=== PATIENT | male | born 1965 | race Caucasian/White ===

== ENCOUNTER 2017-08-27 17:23 | Emergency (ER) | payer MEDICAID ==
[~2017-08-27] VITALS: Ht 185.4 cm; Wt 108.9 kg
[2017-08-27 17:31] VITALS: BP 153/96
[2017-08-27] MEDS ORDERED: diphenhdrAMINE HCL 25 MG CAP PO ONE (17:45)
== END 2017-08-27 18:29 | disposition home or self-care (01) ==
LOC: EDBD 17:23 → ER 17:23
DX: F41.9 Anxiety disorder, unspecified (principal); M25.511 Pain in right shoulder

== ENCOUNTER 2021-02-04 11:58 | Inpatient (IN) | payer MEDICAID ==
[~2021-02-04] VITALS: Ht 188 cm; Wt 124.9 kg
[2021-02-04] MEDS ORDERED: CHOL20009 PO (13:22)
[2021-02-04] MEDS ORDERED: APIX5TAB PO (13:22)
[2021-02-04] MEDS ORDERED: SIMV-8 PO (13:22)
[2021-02-04] MEDS ORDERED: LISI20TA28 PO (13:22)
[2021-02-04 13:46] LABS: Basophils # (auto) 0.1 10 ^3/uL (0-0.2); Basophils % (auto) 0.9 % (0.0-2.0); Eosinophils # (auto) 0.3 10 ^3/uL (0-0.8); Eosinophils % (auto) 2.6 % (0.0-7.0); Hematocrit 46.3 % (41.0-53.0); Hemoglobin 15.4 g/dL (13.5-17.5); Lymphocytes # (auto) 2.3 10 ^3/uL (0.4-5.4); Lymphocytes % (auto) 18.7 % (10.0-50.0); Mean Corpuscular Hgb Conc. 33.2 g/dL (32.0-36.0); Mean Corpuscular Volume 93.5 fL (80.0-100.0); Monocytes # (auto) 1.3 10 ^3/uL (0-1.3); Monocytes % (auto) 10.5 % (0.0-12.0); Neutrophils # (auto) 8.3 10 ^3/uL (1.6-8.6); Neutrophils % (auto) 67.3 % (37.0-80.0); Nucleated Red Blood Cells % 0.1 %; Red Blood Cells 4.95 10^6/uL (4.5-5.90); Red Cell Distribution Width 12.6 % (11.8-14.3); White Blood Cell 12.3 10^3/uL (4.4-10.8)
[2021-02-04 13:50] LABS: Albumin 2.9 g/dL (3.4-5.0); Potassium 3.8 mmol/L (3.5-5.1)
[2021-02-04 13:55] LABS: BUN/Creatinine Ratio 23.2; Bilirubin, Total 0.7 mg/dL (0.2-1.0); Calcium 8.5 mg/dL (8.5-10.1); Total Protein 7.3 g/dL (6.4-8.2)
[2021-02-04 14:23] LABS: INR 1.12 (0.9-1.15); Partial Thromboplastin Time 29.3 sec (23.6-33.0)
[2021-02-04 16:24] LABS: Urine Bacteria NONE SEEN /hpf (None Seen); Urine Blood Negative /uL (Negative); Urine WBC <1 /hpf (0 - 3)
[2021-02-04] MEDS ORDERED: IOHEXOL 350 MG/ML 100ML IJ ONE (17:44)
[2021-02-04] MEDS ORDERED: HEPARIN SODIUM (PORCINE) 5000 UNITS/ML 1ML VIAL IV ONE (19:45)
[2021-02-04] MEDS: HEPARIN DRIP/D5W 100UNITS/ML 250 ML IV SCH (20:17)
[2021-02-05] VITALS (7 sets, daily range): BP systolic 120–157; BP diastolic 70–97
[2021-02-05] MEDS ORDERED: NITROGLYCERIN 0.4 MG SL TAB SL PRN (00:15)
[2021-02-05] MEDS ORDERED: ONDANSETRON HCL 4 MG/2 ML VIAL IV PRN (00:15)
[2021-02-05] MEDS ORDERED: MORPHINE SULFATE INJECTION 2 MG/ML SYRG IV PRN (00:15)
[2021-02-05] MEDS ORDERED: hydrALAZINE HCL 20 MG/ML VL IV PRN (00:15)
[2021-02-05 04:28] LABS: INR 1.25 (0.9-1.15)
[2021-02-05 04:34] LABS: Partial Thromboplastin Time > 139.0 sec (23.6-33.0)
[2021-02-05 09:09] LABS: INR 1.17 (0.9-1.15); Partial Thromboplastin Time 37.4 sec (23.6-33.0)
[2021-02-05 09:10] LABS: Calcium 8.8 mg/dL (8.5-10.1); Potassium 4.3 mmol/L (3.5-5.1)
[2021-02-05 09:14] LABS: BUN/Creatinine Ratio 17.3
[2021-02-05] MEDS: MORPHINE SULFATE 4 MG/ML SYR/VIAL IV PRN ×3 (09:30→21:38)
[2021-02-05] MEDS: HEPARIN DRIP/D5W 100UNITS/ML 250 ML IV SCH (09:39)
[2021-02-05 14:58] LABS: INR 1.16 (0.9-1.15); Partial Thromboplastin Time 31.4 sec (23.6-33.0)
[2021-02-05] MEDS ORDERED: HEPARIN SODIUM (PORCINE) 5000 UNITS/ML 1ML VIAL IV ONE (15:15)
[2021-02-05] MEDS: ATORVASTATIN 20 MG TAB PO SCH (21:37)
[2021-02-05 22:38] LABS: INR 1.13 (0.9-1.15); Partial Thromboplastin Time 53.8 sec (23.6-33.0)
[2021-02-06] MEDS: HEPARIN DRIP/D5W 100UNITS/ML 250 ML IV SCH (00:43)
[2021-02-06] MEDS: MORPHINE SULFATE 4 MG/ML SYR/VIAL IV PRN ×4 (03:46→21:02)
[2021-02-06 05:00] VITALS: BP 126/63
[2021-02-06 06:52] LABS: Basophils # (auto) 0.1 10 ^3/uL (0-0.2); Basophils % (auto) 0.7 % (0.0-2.0); Eosinophils # (auto) 0.5 10 ^3/uL (0-0.8); Eosinophils % (auto) 5.7 % (0.0-7.0); Hematocrit 43.8 % (41.0-53.0); Lymphocytes # (auto) 2.4 10 ^3/uL (0.4-5.4); Lymphocytes % (auto) 25.2 % (10.0-50.0); Mean Corpuscular Hemoglobin 32.2 pg (28.0-32.0); Mean Corpuscular Hgb Conc. 34.2 g/dL (32.0-36.0); Mean Corpuscular Volume 94.3 fL (80.0-100.0); Monocytes # (auto) 0.9 10 ^3/uL (0-1.3); Monocytes % (auto) 9.6 % (0.0-12.0); Neutrophils # (auto) 5.6 10 ^3/uL (1.6-8.6); Neutrophils % (auto) 58.8 % (37.0-80.0); Nucleated Red Blood Cells % 0.1 %; Red Blood Cells 4.64 10^6/uL (4.5-5.90); Red Cell Distribution Width 12.6 % (11.8-14.3); White Blood Cell 9.5 10^3/uL (4.4-10.8)
[2021-02-06 07:10] LABS: BUN/Creatinine Ratio 13.1; Calcium 8.6 mg/dL (8.5-10.1); Potassium 4.7 mmol/L (3.5-5.1)
[2021-02-06 07:11] LABS: INR 1.14 (0.9-1.15); Partial Thromboplastin Time 49.2 sec (23.6-33.0)
[2021-02-06 08:30] VITALS: BP 131/89
[2021-02-06] MEDS: CHOLECALCIFEROL (VITD3) 2,000 UNIT CAP/TAB PO SCH (09:29)
[2021-02-06] MEDS: LISINOPRIL 20 MG TAB PO SCH (09:29)
[2021-02-06 12:30] VITALS: BP 136/90
[2021-02-06 14:22] LABS: INR 1.16 (0.9-1.15); Partial Thromboplastin Time 54.5 sec (23.6-33.0)
[2021-02-06 17:00] VITALS: BP 128/74
[2021-02-06] MEDS: ATORVASTATIN 20 MG TAB PO SCH (21:02)
[2021-02-06] MEDS: APIXABAN 5 MG TAB PO SCH (21:02)
[2021-02-06 22:00] VITALS: BP 132/82
[2021-02-07 05:00] VITALS: BP 123/75
[2021-02-07 07:42] LABS: BUN/Creatinine Ratio 12.4; Calcium 8.8 mg/dL (8.5-10.1); Potassium 5.1 mmol/L (3.5-5.1)
[2021-02-07 07:43] LABS: Basophils # (auto) 0.1 10 ^3/uL (0-0.2); Eosinophils # (auto) 0.5 10 ^3/uL (0-0.8); Eosinophils % (auto) 4.5 % (0.0-7.0); Hematocrit 43.6 % (41.0-53.0); Hemoglobin 14.9 g/dL (13.5-17.5); Lymphocytes # (auto) 2.1 10 ^3/uL (0.4-5.4); Lymphocytes % (auto) 19.7 % (10.0-50.0); Mean Corpuscular Hemoglobin 31.6 pg (28.0-32.0); Mean Corpuscular Hgb Conc. 34.1 g/dL (32.0-36.0); Mean Corpuscular Volume 92.5 fL (80.0-100.0); Monocytes # (auto) 1.2 10 ^3/uL (0-1.3); Monocytes % (auto) 11.1 % (0.0-12.0); Neutrophils # (auto) 6.7 10 ^3/uL (1.6-8.6); Neutrophils % (auto) 63.7 % (37.0-80.0); Nucleated Red Blood Cells % 0.1 %; Red Blood Cells 4.72 10^6/uL (4.5-5.90); Red Cell Distribution Width 12.7 % (11.8-14.3); White Blood Cell 10.5 10^3/uL (4.4-10.8)
[2021-02-07 08:00] VITALS: BP 107/67
[2021-02-07 09:00] VITALS: BP 120/72
[2021-02-07] MEDS: CHOLECALCIFEROL (VITD3) 2,000 UNIT CAP/TAB PO SCH (09:23)
[2021-02-07] MEDS: APIXABAN 5 MG TAB PO SCH (09:23)
[2021-02-07] MEDS: LISINOPRIL 20 MG TAB PO SCH (09:29)
[2021-02-07 13:00] VITALS: BP 108/81
[2021-02-07] MEDS: MORPHINE SULFATE 4 MG/ML SYR/VIAL IV PRN ×2 (14:07→18:20)
[2021-02-07] MEDS ORDERED: APIX5TAB PO (14:26)
[2021-02-07] MEDS ORDERED: SIMV-8 PO (14:26)
[2021-02-07] MEDS ORDERED: LISI20TA28 PO (14:26)
[2021-02-07 18:30] VITALS: BP 123/89
[2021-02-07 18:50] VITALS: BP 125/68
[2021-02-13] MEDS ORDERED: APIXABAN 5 MG TAB PO SCH (22:00)
== END 2021-02-07 18:40 | disposition home or self-care (01) | DRG 134 ==
LOC: ER 11:58 → EDBD 11:58 → TELE 02-05 00:16 → TELE-WESTW 02-05 04:12
PROVIDERS: ADMIT Hospitalist; ATTEND Hospitalist
DX: I26.99 Other pulmonary embolism without acute cor pulmonale (principal); J96.01 Acute respiratory failure with hypoxia; E44.0 Moderate protein-calorie malnutrition; E66.9 Obesity, unspecified; E55.9 Vitamin D deficiency, unspecified; E78.5 Hyperlipidemia, unspecified; I10 Essential (primary) hypertension; I27.20 Pulmonary hypertension, unspecified; J98.11 Atelectasis; Z20.822 Contact with and (suspected) exposure to COVID-19; Z79.01 Long term (current) use of anticoagulants; Z86.711 Personal history of pulmonary embolism; Z86.718 Personal history of other venous thrombosis and embolism; Z87.891 Personal history of nicotine dependence; Z91.14 Patient's other noncompliance with medication regimen; Z79.899 Other long term (current) drug therapy; Z68.35 Body mass index [BMI] 35.0-35.9, adult; R91.1 Solitary pulmonary nodule
CPT/HCPCS: 36415; 36600; 71045; 71275; 80048; 80053; 81001; 82805; 83735; 83880; 84443; 84484; 85025; 85379; 85610; 85730; 87426; 93005; 93306; 96365; 96376; G0378; J2405

== ENCOUNTER 2024-01-24 18:24 | Inpatient (IN) | payer MEDICAID ==
[~2024-01-24] VITALS: Ht 180.3 cm; Wt 119.7 kg
[~2024-01-24 18:24] MED LIST: APIX5TAB PO; CHOL20009 PO; LISI20TA56 PO; SIMV20TA20 PO
[2024-01-24] MEDS: ONDANSETRON HCL 4 MG/2 ML VIAL IV ONE (18:30)
[2024-01-24 18:52] LABS: Basophils # (auto) 0.1 10 ^3/uL (0-0.2); Basophils % (auto) 0.9 % (0.0-2.0); Eosinophils # (auto) 0.3 10 ^3/uL (0-0.8); Eosinophils % (auto) 2.5 % (0.0-7.0); Hematocrit 48.2 % (41.0-53.0); Hemoglobin 16.8 g/dL (13.5-17.5); Lymphocytes # (auto) 3.1 10 ^3/uL (0.4-5.4); Lymphocytes % (auto) 25.3 % (10.0-50.0); Mean Corpuscular Hemoglobin 34.1 pg (28.0-32.0); Mean Corpuscular Hgb Conc. 34.8 g/dL (32.0-36.0); Mean Corpuscular Volume 97.9 fL (80.0-100.0); Monocytes # (auto) 1.3 10 ^3/uL (0-1.3); Monocytes % (auto) 10.7 % (0.0-12.0); Neutrophils # (auto) 7.4 10 ^3/uL (1.6-8.6); Neutrophils % (auto) 60.6 % (37.0-80.0); Nucleated Red Blood Cells % 0.2 %; Platelet Count (auto) 171 10^3/uL (140-450); Red Blood Cells 4.92 10^6/uL (4.5-5.90); Red Cell Distribution Width 13.6 % (11.8-14.3); White Blood Cell 12.2 10^3/uL (4.4-10.8)
--- NOTE | 2024-01-24 18:56 | ED.PDOC ---
SOB-HPI HPI Comments 58-year-old male comes to ER via EMS due to shortness of breath. Patient with a past medical history of rattlesnake bite, hypertension, hyperlipidemia, right lower extremity DVT and bilateral PE, patient has poor compliance to his Eliquis . Patient shortness of breath has been ongoing for past few days progressively getting worse. He is on home oxygen. Patient was saturating 90% on room air. Patient was given breathing treatment, EN route to the emergency room. 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 Information Source: Patient Mode of Arrival: EMS Severity: Moderate Timing: Days Duration: Intermittent Context: At Rest, With Light Exertion PE Risk Factors: None History of: DVT/PE Prehospital treatment: Breathing Tx, Oxygen Modifying Factors: Nothing Past Medical History PAST MEDICAL HISTORY: High Lipids, HTN, PE Past Medical History (Other): DVT right leg Surgical History: Denies all surgeries Family History Family History: Reviewed,noncontributory to illness Social History Smoker: Non-Smoker Alcohol: Denies ETOH Use Drugs: Denies Drug Use Lives In: Home Constitutional: denies: chills, diaphoresis, fatigue, fever, malaise, sweats, weakness, others EENTM: denies: blurred vision, double vision, ear bleeding, ear discharge, ear drainage, ear pain, ear ringing, eye pain, eye redness, hearing loss, mouth pain, mouth swelling, nasal discharge, nose bleeding, nose congestion, nose pain, photophobia, tearing, throat pain, throat swelling, voice changes, others Respiratory: reports: SOB at rest, shortness of breath, SOB with excertion; denies: cough, hemoptysis, orthopnea, stridor, wheezing, others Cardiovascular: denies: chest pain, dizzy spells, diaphoresis, Dyspnea on exertion, edema, irregular heart beat, left arm pain, lightheadedness, palpitations, PND, syncope, others Gastrointestinal: denies: abdomen distended, abdominal pain, blood streaked bowels, constipated, diarrhea, dysphagia, difficulty swallowing, hematemesis, melena, nausea, poor appetite, poor fluid intake, rectal bleeding, rectal pain, vomiting, others Genitourinary: denies: burning, dysuria, flank pain, frequency, hematuria, incontinence, penile discharge, penile sore, pain, testicle pain, testicle swelling, urgency, others Neurological: denies: dizziness, fainting, headache, left sided numbness, left sided weakness, numbness, paresthesia, pre-existing deficit, right sided numbness, right sided weakness, seizure, speech problems, tingling, tremors, weakness, others Musculoskeletal: denies: back pain, gout, joint pain, joint swelling, muscle pain, muscle stiffness, neck pain, others Integumetry: denies: bruises, change in color, change in hair/nails, dryness, laceration, lesions, lumps, rash, wounds, others Allergic/Immunocompromised: denies: Difficulty Healing, Frequent Infections, Hives, Itching, others Hematologic/Lymphatic: denies: anemia, blood clots, easy bleeding, easy bruising, swollen glands, others Endocrine: denies: excessive hunger, excessive sweating, excessive thirst, excessive urination, flushing, intolerance to cold, intolerance to heat, unexplained weight gain, unexplained weight loss, others Psychiatric: denies: anxiety, bipolar disorder, depression, hopeless, panic disorder, schizophrenia, sleepless, suicidal, others Physical Exam General Appearance: No Apparent Distress, Normal HEENT: Normal ENT Inspection, Pharynx Normal, TMs Normal Neck: Full Range of Motion, Non-Tender, Normal, Normal Inspection Respiratory: Chest Non-Tender, Lungs Clear, No Accessory Muscle Use, No Respiratory Distress, Normal Breath Sounds Cardiovascular: No Edema, No JVD, No Murmur, No Gallop, Normal Peripheral Pulses, Regular Rate/Rhythm Breast Exam: Deferred Gastrointestinal: No Organomegaly, Non Tender, No Pulsatile Mass, Normal Bowel Sounds, Soft Genitalia: Deferred Pelvic: Deferred Rectal: Deferred Extremities: No calf tenderness, Normal capillary refill, Normal inspection, Normal range of motion, Non-tender, No pedal edema Musculoskeletal : Apperance: Normal Neurologic: Alert, 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 Was a procedure done?: No Differential Dx Differential Diagnosis: Asthma, Bronchitis, CHF, COPD, Pneumonia, Pulmonary Embolism, Respiratory Distress, URI X-Ray, Labs, Meds, VS Vital Signs Date Time Temp Pulse Resp B/P (MAP) Pulse Ox O2 Delivery O2 Flow Rate FiO2 01/24/24 21:01 88 21 158/99 01/24/24 20:26 97.9 88 21 158/99 (118) 96 97.9 01/24/24 20:26 88 21 96 Nasal Cannula* 2 28 01/24/24 18:41 98.9 100 22 164/100 (121) 99 01/24/24 18:28 98 Lab Test 01/24/24 21:12 01/24/24 19:33 01/24/24 18:39 Range/Units Troponin I High Sensitivity 169 *H 195 *H 186 *H </=54 ng/L White Blood Count 12.2 H 4.4-10.8 10^3/uL Red Blood Count 4.92 4.5-5.90 10^6/uL Hemoglobin 16.8 13.5-17.5 g/dL Hematocrit 48.2 41.0-53.0 % Mean Corpuscular Volume 97.9 80.0-100.0 fL Mean Corpuscular Hemoglobin 34.1 H 28.0-32.0 pg Mean Corpuscular Hemoglobin Concent 34.8 32.0-36.0 g/dL Red Cell Distribution Width 13.6 11.8-14.3 % Platelet Count 171 140-450 10^3/uL Mean Platelet Volume 8.8 6.9-10.8 fL Neutrophils (%) (Auto) 60.6 37.0-80.0 % Lymphocytes (%) (Auto) 25.3 10.0-50.0 % Monocytes (%) (Auto) 10.7 0.0-12.0 % Eosinophils (%) (Auto) 2.5 0.0-7.0 % Basophils (%) (Auto) 0.9 0.0-2.0 % Neutrophils # (Auto) 7.4 1.6-8.6 10 ^3/uL Lymphocytes # (Auto) 3.1 0.4-5.4 10 ^3/uL Monocytes # (Auto) 1.3 0-1.3 10 ^3/uL Eosinophils # (Auto) 0.3 0-0.8 10 ^3/uL Basophils # (Auto) 0.1 0-0.2 10 ^3/uL Nucleated Red Blood Cells 0.2 % D-Dimer, Quantitative 3.53 H 0.0-0.49 mg/L FEU Sodium Level 138 136-145 mmol/L Potassium Level 3.7 3.5-5.1 mmol/L Chloride Level 105 98-107 mmol/L Carbon Dioxide Level 23 20-31 mmol/L Anion Gap 10 5-15 Blood Urea Nitrogen 5 L 9-23 mg/dL Creatinine 0.83 0.700-1.30 mg/dL Glomerular Filtration Rate Calc 101 >90 mL/min BUN/Creatinine Ratio 6.0 L 10.0-20.0 Serum Glucose 113 H 74-106 mg/dL Calcium Level 9.4 8.7-10.4 mg/dL B-Type Natriuretic Peptide 242.63 0-100 pg/mL Current Medications Medications (Trade) Dose Ordered Sig/Pedro Route Start Time Stop Time Status Last Admin Morphine Sulfate 4 mg ONCE ONCE IV 01/24/24 18:30 01/24/24 18:31 DC 01/24/24 21:01 PROCEDURE(s): CTACH - CT ANGIO CHEST CONTRAST Findings: Pulmonary artery: Large filling defects are noted in the right and left pulmonary arteries. Lower neck: Normal thyroid. Lungs: No focal consolidation, pulmonary mass, or suspicious pulmonary nodule. Heart/Vascular Structures: Normal heart size. Normal caliber and enhancement of the aorta. There is some straightening of the septum and reflux of contrast into the inferior vena cava and hepatic veins suggesting right heart strain. Lymph Nodes: No adenopathy Pleura: No pleural effusion or significant pneumothorax. Musculoskeletal: No acute osseous abnormality. Upper abdomen: Limited portions of the upper abdomen are unremarkable. IMPRESSION: 1. Large bilateral filling defects in the pulmonary arteries suggestive of pulmonary emboli. Findings are noted secondary 3rd order branches of the pulmonary arteries bilaterally. 2. CT findings suggesting right heart strain CRITICAL FINDINGS Critical Result: BILATERAL PULMONARY EMBOLUS Bilateral lower extremity venous duplex Findings: RIGHT SIDE: The common femoral vein demonstrates appropriate compressibility and waveform variability. There is compressibility/patency of the great saphenous vein at the proximal thigh. The femoral vein demonstrates appropriate compressibility and waveform variability. The deep femoral vein demonstrates appropriate compressibility and waveform variability. The popliteal vein demonstrates no flow or compressibility of the right popliteal vein consistent with thrombus. There is normal compressibility at the tibioperoneal trunk. Right inguinal lymph node measuring 3.2 cm. Impression: 1. No flow or compressibility of the right popliteal vein consistent with DVT. 2. 3.2 cm lymph node in the right inguinal area. 3. Incidental finding of calcification of the right common femoral artery with no flow. 4. Right SFA proximally is monophasic. CHEST RADIOGRAPH FINDINGS: Lines and Tubes: None Lungs: No focal consolidation. Pleura: No effusion. No pneumothorax. Cardiomediastinal contours: Cardiac size is mildly enlarged. Bones: No acute osseous abnormality. IMPRESSION: 1. Cardiac size is mildly enlarged. Time of 1ST Reevaluation: 18:52 Reevaluation 1ST: Unchanged Patient Education/Counseling: Diagnosis, Treatment Family Education/Counseling: No Family Present Departure 1 Departure Time of Disposition: 21:54 (Patient presented with chest pain that was concerning for possible STEMI, ACS, PE, Pneumonia, Muscle Strain, COPD, Dissection. Data: 1. I ordered and reviewed the result of at least 3 labs including a CBC, BMP, and Troponin. 2. I independently interpreted the following tests: EKG which shows sinus arrhythmia and Chest X-ray which shows benign chest.Risk:This patient has a high risk of morbidity due to further diagnostic testing or treatment and may suffer from an acute cardiac or respiratory disorder. Workup reveals bilateral pulmonary embolism. [facility] team will be consulted, heparin drip started and patient should be admitted for further workup and possible expert consultation. ) Impression: Primary Impression: Bilateral pulmonary embolism Additional Impressions: Right leg DVT Qualified Codes: I82.431 - Acute embolism and thrombosis of right popliteal vein Acute chest pain Acute dyspnea Disposition: 09 ADMITTED INPATIENT Admit to: Tele Condition: Guarded Critical Care Note Critical Care Time?: Yes (35 min-critical care time only) Critical care comment: Acute chest pain Authorized and Performed by: Milagro Cooley MD Total critical care time: Approximately 48 minutes Due to a high probability of clinically significant, life threatening deterioration, the patient required my highest level of preparedness to intervene emergently and I personally spent this critical care time directly and personally managing the patient. This critical care time included obtaining a h istory; examining the patient; pulse oximetry; ordering and review of studies; arranging urgent treatment with development of a management plan; evaluation of patient's response to treatment; frequent reassessment; and, discussions with other providers. This critical care time was performed to assess and manage the high probability of imminent, life-threatening deterioration that could result in multi-organ failure. It was exclusive of separately billable procedures and treating other patients and teaching time. Please see my other sections and the rest of the note for further information on patient assessment and treatment. Stability Stability form required: No Heart Score Heart Score: Heart Score Response (Comments) Value History Slightly Suspicious 0 EKG Normal 0 Age 45-64 1 Risk Factors 1 or 2 risk factors 1 Troponin Normal limit 0 Total 2 I personally scribed for MILAGRO COOLEY MD ([facility]) on 01/24/24 at 18:56. Electronically submitted by Shreyas Swenson ([facility]). I personally scribed for MILAGRO COOLEY MD ([facility]) on 01/24/24 at 20:00. Electronically submitted by Shreyas Swenson ([facility]). I personally scribed for MILAGRO COOLEY MD ([facility]) on 01/24/24 at 21:41. Electronically submitted by Shreyas Swenson ([facility]). MILAGRO COOLEY MD Jan 24, 2024 18:56
--- NOTE | 2024-01-24 19:00 | DVH ---
CHEST RADIOGRAPH Indication:CHEST PAIN/ SOB Technique: Single frontal view of the chest was obtained Comparison: CHEST PORTABLE on DOS: 02/04/21 FINDINGS: Lines and Tubes: None Lungs: No focal consolidation. Pleura: No effusion. No pneumothorax. Cardiomediastinal contours: Cardiac size is mildly enlarged. Bones: No acute osseous abnormality. IMPRESSION: 1. Cardiac size is mildly enlarged.
[2024-01-24 19:02] LABS: Chloride 105 mmol/L (98-107); Potassium 3.7 mmol/L (3.5-5.1); Sodium 138 mmol/L (136-145)
[2024-01-24 19:04] LABS: Anion Gap 10 (5-15); Calcium 9.4 mg/dL (8.7-10.4); Carbon Dioxide 23 mmol/L (20-31)
[2024-01-24 19:09] LABS: Blood Urea Nitrogen 5 mg/dL (9-23); Glucose 113 mg/dL (74-106)
--- NOTE | 2024-01-24 19:12 | ECG ---
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
--- NOTE | 2024-01-24 19:52 | DVH ---
Bilateral lower extremity venous duplex Clinical History: right leg pain, history of blood clots Comparison: None Technique: Duplex Doppler evaluation of the deep venous systems of both lower extremities from the common femora l veins to the popliteal veins including color Doppler and spectral/pulsed waveform analysis was perf ormed. Findings: RIGHT SIDE: The common femoral vein demonstrates appropriate compressibility and waveform variability. There is compressibility/patency of the great saphenous vein at the proximal thigh. The femoral vein demonstrates appropriate compressibility and waveform variability. The deep femoral vein demonstrates appropriate compressibility and waveform variability. The popliteal vein demonstrates no flow or compressibility of the right popliteal vein consistent wit h thrombus. There is normal compressibility at the tibioperoneal trunk. Right inguinal lymph node measuring 3.2 cm. Impression: 1. No flow or compressibility of the right popliteal vein consistent with DVT. 2. 3.2 cm lymph node in the right inguinal area. 3. Incidental finding of calcification of the right common femoral artery with no flow. 4. Right SFA proximally is monophasic.
[2024-01-24 20:26] VITALS: PULSE 88; RESP 21; O2SAT 96
[2024-01-24] MEDS: MORPHINE SULFATE 4 MG/ML SYR/VIAL IV ONE (21:01)
[2024-01-24] MEDS: IOHEXOL 350 MG/ML 100ML IJ ONE (21:13)
--- NOTE | 2024-01-24 21:32 | DVH ---
INDICATION: chest pain, sob, dvt noncompliant with meds Comparison: 02/04/2021 TECHNIQUE: Multidetector CTA of the chest was performed of the chest with 100 cc of intravenous contr ast. PULMONARY ANGIOGRAPHY PROTOCOL was utilized using a bolus-tracking technique centered on the suni n pulmonary artery. Axial, coronal and sagittal multiplanar and MIP reformats were performed. Radiation Dose Information: CT Dose: CTDI volume is 29.6 mGy. Dose-length product is 2227.51 mGy*cm Omnipaque 350: 100 mL The dose indicators for CT are the volume Computed Tomography (CT) Dose Index (CTDIvol) and the Dose Length Product (DLP), and are measured in units of mGy and mGy-cm, respectively. These indicators are not patient dose, but values generated from the CT scanner acquisition factors. The report includes radiation exposure data for exposures received during this examination. Findings: Pulmonary artery: Large filling defects are noted in the right and left pulmonary arteries. Lower neck: Normal thyroid. Lungs: No focal consolidation, pulmonary mass, or suspicious pulmonary nodule. Heart/Vascular Structures: Normal heart size. Normal caliber and enhancement of the aorta. There is s ome straightening of the septum and reflux of contrast into the inferior vena cava and hepatic veins suggesting right heart strain. Lymph Nodes: No adenopathy Pleura: No pleural effusion or significant pneumothorax. Musculoskeletal: No acute osseous abnormality. Upper abdomen: Limited portions of the upper abdomen are unremarkable. IMPRESSION: 1. Large bilateral filling defects in the pulmonary arteries suggestive of pulmonary emboli. Finding s are noted secondary 3rd order branches of the pulmonary arteries bilaterally. 2. CT findings suggesting right heart strain CRITICAL FINDINGS Critical Result: BILATERAL PULMONARY EMBOLUS Findings discussed with MILAGRO Mcgee at 01/24/2024 09:19 PM, and acknowledged receipt and understa nding of the findings. ..
[2024-01-24 22:08] LABS: Basophils # (auto) 0.1 10 ^3/uL (0-0.2); Eosinophils # (auto) 0.1 10 ^3/uL (0-0.8); Eosinophils % (auto) 1.1 % (0.0-7.0); Hematocrit 46.3 % (41.0-53.0); Hemoglobin 16.1 g/dL (13.5-17.5); Lymphocytes # (auto) 2.3 10 ^3/uL (0.4-5.4); Mean Corpuscular Hemoglobin 33.8 pg (28.0-32.0); Mean Corpuscular Hgb Conc. 34.8 g/dL (32.0-36.0); Mean Corpuscular Volume 97.2 fL (80.0-100.0); Neutrophils # (auto) 8.5 10 ^3/uL (1.6-8.6); Neutrophils % (auto) 70.9 % (37.0-80.0); Platelet Count (auto) 163 10^3/uL (140-450); Red Blood Cells 4.76 10^6/uL (4.5-5.90); Red Cell Distribution Width 13.3 % (11.8-14.3)
[2024-01-24] MEDS ORDERED: hydrALAZINE HCL 20 MG/ML VL IV PRN (22:15)
[2024-01-24] MEDS ORDERED: ACETAMINOPHEN 325 MG TAB PO PRN (22:15)
[2024-01-24] MEDS ORDERED: ONDANSETRON HCL 4 MG/2 ML VIAL IV PRN (22:15)
[2024-01-24 22:27] LABS: INR 1.24 (0.9-1.15); Partial Thromboplastin Time 29.9 SEC (24.5-34.5); Prothrombin Time 12.9 sec (9.3-11.8)
--- NOTE | 2024-01-24 22:42 | DVHHP2 ---
History of Present Illness Reason for Visit: Bilateral pulmonary embolism History of Present Illness The patient is a 58-year-old male with past medical history of hyperlipidemia, hypertension, PE, and DVT of right leg presented to [facility] ED with complaint of shortness of breaths. Patient reports he has been having shortness of breaths for the past few days, SOB at rest, SOB with exertion, progressively get worse that prompted this visit. Patient was seen and evaluated in the ED, laboratory data shows WBC 12.2, platelets 171, sodium 138, potassium 3.7, BUN 5, creatinine 0.83, glucose 113, troponin 186, BNP 240 263, D-dimer 3.53, blood pressure 158/99, heart rate 88, temperature 97.9 F, O2 saturation 96% on oxygen. CT Angiography revealing large bilateral filling defect in the pulmonary arteries suggestive of pulmonary emboli; findings are noted secondary thought order branches of the pulmonary arteries bilaterally. Patient was started on heparin drip, please see medication orders section in the computer. On my assessment, patient denied chest pain, no headache, no dizziness, currently on oxygen, no nausea, no vomiting, no fever, no chills. Patient was admitted for further evaluation and medical management. Past Medical History High Lipids, HTN, PE, DVT right leg Past Surgical History Denies all surgeries Family History Reviewed, noncontributory to the management of this case. Past Social History The patient lives at home, denies smoking, alcohol or illicit drugs abuse. Review of Systems Constitutional: No: Fever, Chills, Sweats, Weakness, Malaise, Other Eyes: No: Pain, Vision change, Conjunctivae inflammation, Eyelid inflammation, Other, Redness ENT: No: Ear pain, Ear discharge, Nose pain, Nose discharge, Nose congestion, Mouth pain, Mouth swelling, Throat pain, Throat swelling, Other Respiratory: Shortness of breath, SOB with excertion, Other (SOB at rest); No: Cough, Dry, Wheezing, Hemoptysis, Pleuritic Pain, Sputum, Wheezing Cardiovascular: No: Chest Pain, Palpitations, Orthopnea, Paroxysmal Noc. Dyspnea, Edema, Lt Headedness, Other Gastrointestinal: No: Nausea, Vomiting, Abdominal Pain, Diarrhea, Constipation, Melena, Hematochezia, Other Genitourinary: No Dysuria, No Frequency, No Incontinence, No Hematuria, No Retention, No Other Musculoskeletal: No: other, neck pain, shoulder pain, arm pain, back pain, hand pain, leg pain, foot pain Skin: No: Rash, Lesions, Jaundice, Bruising, Other Neurological: No: Weakness, Numbness, Incoordination, Change in speech, Confusion, Seizures, Other Allergies: Coded Allergies: No Known Drug Allergy (Verified Allergy, Unknown, 10/21/15) Medications Current Medications Medications Dose Ordered Sig/Pedro Route Start Time Stop Time Status Last Admin Dose Admin Heparin Sodium/ Dextrose 250 ml @ 23.4 mls/hr [id number] IV 01/24/24 21:45 UNV Hydralazine HCl 10 mg Q6HP PRN IV 01/24/24 22:15 Atorvastatin Calcium 20 mg HS PO 01/25/24 22:00 Lisinopril 20 mg DAILY PO 01/25/24 10:00 Sodium Chloride 1,000 ml @ 60 mls/hr [id number] IV 01/24/24 22:15 Acetaminophen/ Hydrocodone Bitart 1 tab Q4HP PRN PO 01/24/24 22:15 Ondansetron HCl 4 mg Q4HP PRN IV 01/24/24 22:15 Docusate Sodium 100 mg BIDPRN PRN PO 01/24/24 22:15 Acetaminophen 650 mg Q6HP PRN PO 01/24/24 22:15 Morphine Sulfate 2 mg Q4HPRN PRN IV 01/24/24 22:15 Exam Vital Signs Vital Signs Date Time Temp Pulse Resp B/P (MAP) Pulse Ox O2 Delivery O2 Flow Rate FiO2 01/24/24 21:01 88 21 158/99 01/24/24 20:26 97.9 96 97.9 01/24/24 20:26 Nasal Cannula* 2 28 General Appearance: Alert, Oriented X3, Cooperative, No acute distress HEENT: Atraumatic, PERRLA, EOMI, Mucous membr. moist/pink Respiratory: Normal air movement, Other (Diminished breath sounds) Cardiovascular: Regular rate, Normal S1, Normal S2, No murmurs Abdominal: Normal bowel sounds, Soft, No tenderness, No hepatospenomegaly, No masses Extremities: No clubbing, No cyanosis, No edema, Normal pulses, No tenderness/swelling Skin: No rashes, No breakdown, No significant lesion Neuro: Normal speech, Normal tone, Sensation intact, Cranial nerves 3-12 NL, Reflexes 2+, Other (Generalized weakness) Psych/Mental Status: Mental status NL, Mood NL Labs/Xrays Labs Test 01/24/24 22:02 01/24/24 21:12 01/24/24 18:39 Range/Units White Blood Count 12.0 H 4.4-10.8 10^3/uL Red Blood Count 4.76 4.5-5.90 10^6/uL Hemoglobin 16.1 13.5-17.5 g/dL Hematocrit 46.3 41.0-53.0 % Mean Corpuscular Volume 97.2 80.0-100.0 fL Mean Corpuscular Hemoglobin 33.8 H 28.0-32.0 pg Mean Corpuscular Hemoglobin Concent 34.8 32.0-36.0 g/dL Red Cell Distribution Width 13.3 11.8-14.3 % Platelet Count 163 140-450 10^3/uL Mean Platelet Volume 8.3 6.9-10.8 fL Neutrophils (%) (Auto) 70.9 37.0-80.0 % Lymphocytes (%) (Auto) 19.0 10.0-50.0 % Monocytes (%) (Auto) 8.0 0.0-12.0 % Eosinophils (%) (Auto) 1.1 0.0-7.0 % Basophils (%) (Auto) 1.0 0.0-2.0 % Neutrophils # (Auto) 8.5 1.6-8.6 10 ^3/uL Lymphocytes # (Auto) 2.3 0.4-5.4 10 ^3/uL Monocytes # (Auto) 1.0 0-1.3 10 ^3/uL Eosinophils # (Auto) 0.1 0-0.8 10 ^3/uL Basophils # (Auto) 0.1 0-0.2 10 ^3/uL Nucleated Red Blood Cells 0.0 % Prothrombin Time 12.9 H 9.3-11.8 sec Prothrombin Time INR 1.24 H 0.9-1.15 Activated Partial Thromboplast Time 29.9 24.5-34.5 SEC Troponin I High Sensitivity 169 *H </=54 ng/L D-Dimer, Quantitative 3.53 H 0.0-0.49 mg/L FEU Sodium Level 138 136-145 mmol/L Potassium Level 3.7 3.5-5.1 mmol/L Chloride Level 105 98-107 mmol/L Carbon Dioxide Level 23 20-31 mmol/L Anion Gap 10 5-15 Blood Urea Nitrogen 5 L 9-23 mg/dL Creatinine 0.83 0.700-1.30 mg/dL Glomerular Filtration Rate Calc 101 >90 mL/min BUN/Creatinine Ratio 6.0 L 10.0-20.0 Serum Glucose 113 H 74-106 mg/dL Calcium Level 9.4 8.7-10.4 mg/dL B-Type Natriuretic Peptide 242.63 0-100 pg/mL PATIENT: CONCHIS JACKSON ACCT: [id number] UNIT: [id number] : 1965 LOC: ER ROOM / BED: / AGE / SEX: 58 / M ADM STATUS: REG ER SERVICE 01 ORDERING PHYSICIAN: MILAGRO COLORADO MD PROCEDURE(s): CTACH - CT ANGIO CHEST CONTRAST REASON: chest pain, sob, dvt noncompliant with meds ORDER NUMBER(s): [id number], ACCESSION NUMBER(s): [id number] INDICATION: chest pain, sob, dvt noncompliant with meds Comparison: 02/04/2021 TECHNIQUE: Multidetector CTA of the chest was performed of the chest with 100 cc of intravenous contrast. PULMONARY ANGIOGRAPHY PROTOCOL was utilized using a bolus-tracking technique centered on the main pulmonary artery. Axial, coronal and sagittal multiplanar and MIP reformats were performed. Radiation Dose Information: CT Dose: CTDI volume is 29.6 mGy. Dose-length product is 2227.51 mGy*cm Omnipaque 350: 100 mL The dose indicators for CT are the volume Computed Tomography (CT) Dose Index (CTDIvol) and the Dose Length Product (DLP), and are measured in units of mGy and mGy-cm, respectively. These indicators are not patient dose, but values generated from the CT scanner acquisition factors. The report includes radiation exposure data for exposures received during this examination. Findings: Pulmonary artery: Large filling defects are noted in the right and left pulmonary arteries. Lower neck: Normal thyroid. Lungs: No focal consolidation, pulmonary mass, or suspicious pulmonary nodule. Heart/Vascular Structures: Normal heart size. Normal caliber and enhancement of the aorta. There is some straightening of the septum and reflux of contrast into the inferior vena cava and hepatic veins suggesting right heart strain. Lymph Nodes: No adenopathy Pleura: No pleural effusion or significant pneumothorax. Musculoskeletal: No acute osseous abnormality. Upper abdomen: Limited portions of the upper abdomen are unremarkable. IMPRESSION: 1. Large bilateral filling defects in the pulmonary arteries suggestive of pulmonary emboli. Findings are noted secondary 3rd order branches of the pulmonary arteries bilaterally. 2. CT findings suggesting right heart strain CRITICAL FINDINGS Critical Result: BILATERAL PULMONARY EMBOLUS Findings discussed with MILAGRO Mcgee at 01/24/2024 09:19 PM, and acknowledged receipt and understanding of the findings. ORDERING PHYSICIAN: MILAGRO COLORADO MD PROCEDURE(s): RLDVT - RT Lower DVT REASON: right leg pain, history of blood clots ORDER NUMBER(s): [id number], ACCESSION NUMBER(s): [id number] Bilateral lower extremity venous duplex Clinical History: right leg pain, history of blood clots Comparison: None Technique: Duplex Doppler evaluation of the deep venous systems of both lower extremities from the common femoral veins to the popliteal veins including color Doppler and spectral/pulsed waveform analysis was performed. Findings: RIGHT SIDE: The common femoral vein demonstrates appropriate compressibility and waveform variability. There is compressibility/patency of the great saphenous vein at the proximal thigh. The femoral vein demonstrates appropriate compressibility and waveform variability. The deep femoral vein demonstrates appropriate compressibility and waveform variability. The popliteal vein demonstrates no flow or compressibility of the right popliteal vein consistent with thrombus. There is normal compressibility at the tibioperoneal trunk. Right inguinal lymph node measuring 3.2 cm. Impression: 1. No flow or compressibility of the right popliteal vein consistent with DVT. 2. 3.2 cm lymph node in the right inguinal area. 3. Incidental finding of calcification of the right common femoral artery with no flow. 4. Right SFA proximally is monophasic. ORDERING PHYSICIAN: MILAGRO COLORADO MD PROCEDURE(s): CXR1 - CHEST XRAY 1 VIEW REASON: CHEST PAIN/ SOB ORDER NUMBER(s): [id number], ACCESSION NUMBER(s): [id number] CHEST RADIOGRAPH Indication:CHEST PAIN/ SOB Technique: Single frontal view of the chest was obtained Comparison: CHEST PORTABLE on DOS: 02/04/21 FINDINGS: Lines and Tubes: None Lungs: No focal consolidation. Pleura: No effusion. No pneumothorax. Cardiomediastinal contours: Cardiac size is mildly enlarged. Bones: No acute osseous abnormality. IMPRESSION: 1. Cardiac size is mildly enlarged. Assessment/Plan Assessment/Plan Bilateral pulmonary embolism Leukocytosis, unspecified Right leg DVT Acute chest pain Generalized weakness Acute dyspnea Acute embolism and thrombosis of right popliteal vein Plan 1. Admit to telemetry unit 2. Breathing treatment 3. Pain control management 4. IV antibiotic management 5. Management of fluids and electrolytes 6. Consultation for vascular/endovascular 7. Diagnostic test CT Angiography 8. DVT prophylaxis-on heparin drip 9. Repeat labs CBC, CMP in a.m. 10. Home medication reviewed and reconciled 11. Continue with current medical management 12. Treatment plan discussed with patient and RN. Patient verbalized understanding. Plan discussed with: Patient, Other (RN) My Orders Orders - JUSTIN KEYES DNP Procedure Category Date Status Time Hydralazine Injection PHA 01/24/24 In Process (Apresoline Inject 22:15 Atorvastatin (Lipitor) PHA 01/25/24 In Process 22:00 Lisinopril Tablet PHA 01/25/24 In Process (Zestril Tablet) 10:00 Allergies BEAU 01/24/24 In Process 22:06 Code Status CODE 01/24/24 Transmitted 22:06 Sodium Chloride 0.9% PHA 01/24/24 In Process 22:15 Oxygen Per Hour RT 01/24/24 Transmitted 22:06 Hydrocodone-Acet PHA 01/24/24 In Process 5/325mg Tab ([place] 22:15 Ondansetron Hcl PHA 01/24/24 In Process (Zofran) 22:15 Docusate Sodium PHA 01/24/24 In Process Capsule (Colace 22:15 Fall Risk Precautions BEAU 01/24/[address] 22:06 Complete Blood Count LAB 01/25/24 Verified 04:00 Comprehensive LAB 01/25/24 Verified Metabolic Panel 04:00 Cardiac DIET 01/25/24 Transmitted Diet-2gna,Lofat,Lochol Breakfast Echo 2d Mode Cardiac US 01/24/24 Logged DOP 22:06 Condition: Serious BEAU 01/24/24 In Process 22:06 Acetaminophen Tablet PHA 01/24/24 In Process (Tylenol Tablet) 22:15 Maintain Bed Rest BEAU 01/24/24 In Process 22:06 Morphine Sulfate PHA 01/24/24 In Process Injection 22:15 Sequential BEAU 01/24/24 In Process Compression Device Problem List: (1) Bilateral pulmonary embolism (2) Leukocytosis, unspecified (3) Right leg DVT (4) Generalized weakness (5) Acute dyspnea (6) Acute chest pain (7) Acute embolism and thrombosis of right popliteal vein Date of Service: Jan 24, 2024 Billing Provider: JUSTIN KEYES DNP Common Visit Codes: [id number] INP/OBS CARE (HIGH) JUSTIN KEYES DNP Jan 24, 2024 22:42
[2024-01-24] MEDS ORDERED: NITROGLYCERIN 0.4 MG SL TAB SL PRN (22:45)
[2024-01-24] MEDS ORDERED: MORPHINE SULFATE INJ 2 MG/ml SYRG IV PRN (22:45)
[2024-01-24] MEDS: HEPARIN SODIUM (PORCINE) 5000 UNITS/ML 1ML VIAL IV ONE (23:44)
[2024-01-24] MEDS: SODIUM CHLORIDE 0.9% 1,000 ML IV SCH (23:48)
[2024-01-24] MEDS: HEPARIN DRIP/D5W 100UNITS/ML 250 ML IV SCH (23:52)
[2024-01-25] VITALS (10 sets, daily range): BP systolic 129–145; BP diastolic 76–93; PULSE 76–89; RESP 17–23; TEMP 97.5–98.8; O2SAT 93–96
[2024-01-25] MEDS: cefTRIAXone 1GM/50ML D5W 50 ML IV ONE (06:53)
[2024-01-25 07:10] LABS: Basophils # (auto) 0.1 10 ^3/uL (0-0.2); Basophils % (auto) 0.9 % (0.0-2.0); Eosinophils # (auto) 0.4 10 ^3/uL (0-0.8); Eosinophils % (auto) 3.9 % (0.0-7.0); Hematocrit 45.2 % (41.0-53.0); Hemoglobin 15.5 g/dL (13.5-17.5); Lymphocytes # (auto) 2.6 10 ^3/uL (0.4-5.4); Lymphocytes % (auto) 24.3 % (10.0-50.0); Mean Corpuscular Hemoglobin 33.9 pg (28.0-32.0); Mean Corpuscular Hgb Conc. 34.3 g/dL (32.0-36.0); Mean Corpuscular Volume 98.8 fL (80.0-100.0); Monocytes # (auto) 1.3 10 ^3/uL (0-1.3); Monocytes % (auto) 12.1 % (0.0-12.0); Neutrophils # (auto) 6.2 10 ^3/uL (1.6-8.6); Neutrophils % (auto) 58.8 % (37.0-80.0); Nucleated Red Blood Cells % 0.1 %; Platelet Count (auto) 174 10^3/uL (140-450); Red Blood Cells 4.57 10^6/uL (4.5-5.90); Red Cell Distribution Width 13.4 % (11.8-14.3); White Blood Cell 10.6 10^3/uL (4.4-10.8)
[2024-01-25 07:26] LABS: INR 1.24 (0.9-1.15); Prothrombin Time 12.9 sec (9.3-11.8)
[2024-01-25 07:32] LABS: Alanine Aminotransferase < 9 U/L (7-40); Albumin 3.6 g/dL (3.2-4.8); Alkaline Phosphatase 65 U/L (46-116); Anion Gap 7 (5-15); Aspartate Aminotransferase 11 U/L (13-40); BUN/Creatinine Ratio 7.9 (10.0-20.0); Blood Urea Nitrogen 7 mg/dL (9-23); Calcium 9.3 mg/dL (8.7-10.4); Carbon Dioxide 28 mmol/L (20-31); Chloride 104 mmol/L (98-107); Glucose 122 mg/dL (74-106); Potassium 3.8 mmol/L (3.5-5.1); Sodium 139 mmol/L (136-145); Total Protein 6.6 g/dL (5.7-8.2)
[2024-01-25] MEDS: LISINOPRIL 20 MG TAB PO SCH (10:13)
[2024-01-25] MEDS: HEPARIN DRIP/D5W 100UNITS/ML 250 ML IV SCH ×2 (10:24→21:38)
--- NOTE | 2024-01-25 13:02 | DVHINCON2 ---
Date Seen: Jan 25, [address] Cooley Reason for Consultation PE with possible right heart strain, Elevated Troponin History of Present Illness 58-year-old male with PMH for HLD, HTN, history of snake bite, PE and right lower extremity DVT, noncompliance with anticoagulation therapy, recurrent PE, presents to the hospital with shortness of breath and chest pain. Patient states that shortness of breath started approximately 1 week prior and has been progressively getting worse and patient started having increased right lower extremity pain and swelling as well as chest pain. Chest pain retrosternal, radiating up to left upper shoulder area/neck, dull pressure in nature, that worsens with deep breath. Upon evaluation in the ER patient noted to have elevated D-dimer and BNP, elevated troponins trending 186, 195, 169. CT pulmonary angio done and showed large bilateral filling defects with pulmonary artery suggestive of pulmonary emboli as well as straightening of septum and reflux of contrast into the inferior vena cava and hepatic veins suggestive of right heart strain. EKG reviewed and shows sinus rhythm at 98 beats per minute, nonspecific T-wave abnormality. No significant ST abnormalities noted. Past Medical History Pulmonary embolism Lower extremity DVT HTN Tobacco use Medication noncompliance Past Surgical History Denies previous cardiac surgery Family History: Arthritis G8 MOTHER Family History Denies pertinent family cardiac history Social History Denies alcohol, tobacco, illicit drug use. Patient used to be heavy smoker in the past quit in 2018. Allergies: Coded Allergies: No Known Drug Allergy (Verified Allergy, Unknown, 10/21/15) Home Meds Active Scripts Lisinopril (Lisinopril) 20 Mg Tab, 1 TAB PO DAILY, #30 TAB 5 Refills Prov:TIFFANIE CURRAN MD 02/07/21 Simvastatin (Simvastatin) 20 Mg Tab, 20 MG PO DAILY for 30 Days, #30 TAB Prov:TIFFANIE CURRAN MD 02/07/21 Apixaban Base (ELIQUIS) 5 Mg Tab, 5 MG PO BID, #74 TAB Take 10 mg p.o. twice daily x1 week then switch to 5 mg p.o. twice daily Prov:TIFFANIE CURRAN MD 02/07/21 Reported Medications Cholecalciferol (VITAMIN D) 2,000 Unit Tab, 2000 UNIT PO, TAB 02/04/21 Current Medications Current Medications Medications (Trade) Dose Ordered Sig/Pedro Route PRN Reason Start Time Stop Time Status Last Admin Heparin Sodium/ Dextrose 250 ml @ 20 mls/hr [id number] IV 01/24/24 23:00 01/25/24 08:53 DC 01/24/24 23:52 Hydralazine HCl (Apresoline Injection) 10 mg Q6HP PRN IV SBP>150 01/24/24 22:15 Atorvastatin Calcium (Lipitor) 20 mg HS PO 01/25/24 22:00 Lisinopril (Zestril Tablet) 20 mg DAILY PO 01/25/24 10:00 01/25/24 10:13 Sodium Chloride 1,000 ml @ 60 mls/hr [id number] IV 01/24/24 22:15 01/24/24 23:48 Acetaminophen/ Hydrocodone Bitart ([place] 5/325MG Tab) 1 tab Q4HP PRN PO MODERATE PAIN (4-6 PAIN SCALE) 01/24/24 22:15 Ondansetron HCl (Zofran) 4 mg Q4HP PRN IV NAUSEA / VOMITING 01/24/24 22:15 Docusate Sodium (Colace Capsule) 100 mg BIDPRN PRN PO FOR CONSTIPATION 01/24/24 22:15 Acetaminophen (Tylenol Tablet) 650 mg Q6HP PRN PO PAIN SCALE 1-3 OR TEMP>100.4 01/24/24 22:15 Morphine Sulfate 2 mg Q4HPRN PRN IV SEVERE PAIN (7-10 PAIN SCALE) 01/24/24 22:15 Nitroglycerin (Ntrostat Sublingual) 0.4 mg Q5MINP PRN SL FOR CHEST PAIN 01/24/24 22:45 Morphine Sulfate 2 mg Q30M PRN IV FOR CHEST PAIN 01/24/24 22:45 Ceftriaxone Sodium 50 ml @ 100 mls/hr DAILY@09 IV 01/26/24 09:00 Heparin Sodium/ Dextrose 250 ml @ 18 mls/hr [id number] IV 01/25/24 09:00 01/25/24 10:24 Review of Systems Constitutional: No: Fever, Chills, Sweats, Weakness, Malaise, Other Eyes: No: Pain, Vision change, Conjunctivae inflammation, Eyelid inflammation, Other, Redness ENT: No: Ear pain, Ear discharge, Nose pain, Nose discharge, Nose congestion, Mouth pain, Mouth swelling, Throat pain, Throat swelling, Other Respiratory: No: Cough, Dry, , Wheezing, Hemoptysis, Pleuritic Pain, Sputum, Wheezing, Other positive: Shortness of breath, SOB with exertion Cardiovascular: ; No: Palpitations, Orthopnea, Paroxysmal Noc. Dyspnea, , Lt Headedness, Other positive: Chest Pain, Edema Gastrointestinal: No: Nausea, Vomiting, Abdominal Pain, Diarrhea, Constipation, Melena, Hematochezia, Other Genitourinary: No Dysuria, No Frequency, No Incontinence, No Hematuria, No Retention, No Other Musculoskeletal: neck pain; No: other, shoulder pain, arm pain, back pain, hand pain, leg pain, foot pain Skin: No: Rash, Lesions, Jaundice, Bruising, Other Neurological: Other (Dizziness, headache.); No: Weakness, Numbness, Incoordination, Change in speech, Confusion, Seizures Vital Signs Vital Signs Date Time Temp Pulse Resp B/P (MAP) Pulse Ox O2 Delivery O2 Flow Rate FiO2 01/25/24 10:13 134/93 01/25/24 09:00 97.6 81 18 96 97.6 01/25/24 08:00 Nasal Cannula* 2 28 Physical Exam General appearance: Patient is well-developed, well-nourished, in mild acute distress. HEENT: Exam shows: Normocephalic, atraumatic, PERRLA, EOMI Neck: Supple, no bruits Chest: Equal chest excursion bilaterally. Breath sounds rhonchi/diminished. Heart: Rhythm: Regular rate; no murmur or gallop Abdomen: Exam shows: Soft, nontender, nondistended Musculoskeletal: No clubbing, no cyanosis, + lower extremity edema Dermatology: Skin warm, moist. Neurological: Exam shows: Alert and oriented x 3-4, normal speech Available prior records, labs, EKG, rhythm strips reviewed and interpreted Labs/Diagnostic Data Labs Test 01/25/24 06:29 01/24/24 21:12 01/24/24 18:39 Range/Units White Blood Count 10.6 4.4-10.8 10^3/uL Red Blood Count 4.57 4.5-5.90 10^6/uL Hemoglobin 15.5 13.5-17.5 g/dL Hematocrit 45.2 41.0-53.0 % Mean Corpuscular Volume 98.8 80.0-100.0 fL Mean Corpuscular Hemoglobin 33.9 H 28.0-32.0 pg Mean Corpuscular Hemoglobin Concent 34.3 32.0-36.0 g/dL Red Cell Distribution Width 13.4 11.8-14.3 % Platelet Count 174 140-450 10^3/uL Mean Platelet Volume 8.9 6.9-10.8 fL Neutrophils (%) (Auto) 58.8 37.0-80.0 % Lymphocytes (%) (Auto) 24.3 10.0-50.0 % Monocytes (%) (Auto) 12.1 H 0.0-12.0 % Eosinophils (%) (Auto) 3.9 0.0-7.0 % Basophils (%) (Auto) 0.9 0.0-2.0 % Neutrophils # (Auto) 6.2 1.6-8.6 10 ^3/uL Lymphocytes # (Auto) 2.6 0.4-5.4 10 ^3/uL Monocytes # (Auto) 1.3 0-1.3 10 ^3/uL Eosinophils # (Auto) 0.4 0-0.8 10 ^3/uL Basophils # (Auto) 0.1 0-0.2 10 ^3/uL Nucleated Red Blood Cells 0.1 % Prothrombin Time 12.9 H 9.3-11.8 sec Prothrombin Time INR 1.24 H 0.9-1.15 Activated Partial Thromboplast Time 62.0 H 24.5-34.5 SEC Sodium Level 139 136-145 mmol/L Potassium Level 3.8 3.5-5.1 mmol/L Chloride Level 104 98-107 mmol/L Carbon Dioxide Level 28 20-31 mmol/L Anion Gap 7 5-15 Blood Urea Nitrogen 7 L 9-23 mg/dL Creatinine 0.89 0.700-1.30 mg/dL Glomerular Filtration Rate Calc 99 >90 mL/min BUN/Creatinine Ratio 7.9 L 10.0-20.0 Serum Glucose 122 H 74-106 mg/dL Calcium Level 9.3 8.7-10.4 mg/dL Total Bilirubin 1.0 0.2-1.0 mg/dL Aspartate Amino Transferase (AST) 11 L 13-40 U/L Alanine Aminotransferase (ALT) < 9 7-40 U/L Alkaline Phosphatase 65 46-116 U/L Total Protein 6.6 5.7-8.2 g/dL Albumin 3.6 3.2-4.8 g/dL Troponin I High Sensitivity 169 *H </=54 ng/L D-Dimer, Quantitative 3.53 H 0.0-0.49 mg/L FEU B-Type Natriuretic Peptide 242.63 0-100 pg/mL Assessment (Dr. Howard) * Acute bilateral pulmonary embolism, possible right heart strain - CTA showing large bilateral filling defects suggestive of pulmonary emboli, right heart strain. Follow-up echo. Continue on anticoagulation with heparin drip. * Acute hypoxic respiratory failure - on O2 supplementation. Continue anticoagulation therapy for PE. * RLE DVT - Ultrasound showed right popliteal DVT, right common femoral artery calcification with no flow. Continue on heparin drip * Chest pain, mildly elevated troponin - troponins stable. Downtrending. Continue heparin drip. EKG negative for acute ischemic changes. Likely in setting of acute PE. CT angiogram showing significant coronary calcification. Recommend starting on aspirin and statin. Outpatient ischemic workup once respiratory status improves. * HTN - stable, continue p.r.n. as needed. * Medication noncompliance - strongly advised medication compliance Case Discussed with Dr Howard. Thank you for allowing us to participate in this patient's care. Will continue to follow. Critical care, time spent: 40 minutes This medical document was created using an electronic medical record system with voice recognition software and computerized dictation system. Although this document has been carefully reviewed, there might still be some phonetic and typographical errors. Occasional wrong-word or ``sound-alike substitutions may have occurred due to the inherent limitations of voice recognition software. These areas are purely typographical due to imperfections of the software programs and do not reflect any compromise in the patient's medical care. Please read the chart carefully and recognize, using context, where these substitutions have occurred. The treatment plan was discussed with and agreed upon by patient/family including requesting consultants and ordering of imaging/procedures. Plan discussed with: Patient Date of Service: Jan 25, 2024 Billing Provider: BENNY HOWARD MD Cardiology Common Codes: [id number] INP/OBS CARE (High), [id number] CARE 30-74 MIN [facility] Jan 25, 2024 13:02
[2024-01-25 13:23] LABS: INR 1.22 (0.9-1.15); Partial Thromboplastin Time 53.2 SEC (24.5-34.5); Prothrombin Time 12.7 sec (9.3-11.8)
[2024-01-25 19:47] LABS: INR 1.24 (0.9-1.15); Prothrombin Time 12.9 sec (9.3-11.8)
[2024-01-25] MEDS: HYDROcodone-ACET 5/325MG TAB PO PRN (21:33)
[2024-01-25] MEDS: ATORVASTATIN 20 MG TAB PO SCH (21:33)
[2024-01-26] VITALS (9 sets, daily range): BP systolic 117–145; BP diastolic 69–98; PULSE 56–85; RESP 18–20; TEMP 97.7–98.5; O2SAT 92–98
[2024-01-26 05:34] LABS: Basophils # (auto) 0.1 10 ^3/uL (0-0.2); Basophils % (auto) 0.9 % (0.0-2.0); Eosinophils # (auto) 0.4 10 ^3/uL (0-0.8); Eosinophils % (auto) 4.2 % (0.0-7.0); Hematocrit 46.1 % (41.0-53.0); Hemoglobin 15.9 g/dL (13.5-17.5); Lymphocytes # (auto) 2.2 10 ^3/uL (0.4-5.4); Lymphocytes % (auto) 20.2 % (10.0-50.0); Mean Corpuscular Hemoglobin 33.7 pg (28.0-32.0); Mean Corpuscular Hgb Conc. 34.4 g/dL (32.0-36.0); Mean Corpuscular Volume 98.1 fL (80.0-100.0); Monocytes # (auto) 1.1 10 ^3/uL (0-1.3); Monocytes % (auto) 10.3 % (0.0-12.0); Neutrophils # (auto) 6.9 10 ^3/uL (1.6-8.6); Neutrophils % (auto) 64.4 % (37.0-80.0); Platelet Count (auto) 164 10^3/uL (140-450); Red Blood Cells 4.71 10^6/uL (4.5-5.90); Red Cell Distribution Width 13.4 % (11.8-14.3); White Blood Cell 10.7 10^3/uL (4.4-10.8)
[2024-01-26 05:46] LABS: INR 1.22 (0.9-1.15); Partial Thromboplastin Time 62.1 SEC (24.5-34.5); Prothrombin Time 12.7 sec (9.3-11.8)
[2024-01-26] MEDS: cefTRIAXone 1GM/50ML D5W 50 ML IV SCH (08:56)
[2024-01-26 12:28] LABS: INR 1.22 (0.9-1.15); Partial Thromboplastin Time 53.1 SEC (24.5-34.5); Prothrombin Time 12.7 sec (9.3-11.8)
--- NOTE | 2024-01-26 12:58 | DVHSR ---
APPROVED REPORT EXAM: Two-dimensional and M-mode echocardiogram with Doppler and color Doppler. Blood Pressure: 129/79 mmHg INDICATION Elevated BNP RISK FACTORS Height: 70, Weight: 278 DIMENSIONS LVDd5.7 (3.8-5.7cm)LA (2D)5.0 (1.9-4.0cm)Aortic Root3.7 (2.0-3.7cm) LVDs4.8 (2.5-4.0cm)LA (MM) (1.9-4.0cm)Aortic Cusp Exc2.1 (1.5-2.0cm) EF (%) 35.0 (55-70%)Rt. Atrium5.3 (1.9-4.0cm)Asc. Aorta cm IVSd1.4 (0.7-1.1cm)RV (D) (1.8-2.4cm) PWd1.5 (0.7-1.1cm) Mitral Valve MitralMitral Stenosis E wave0.64m/sMV Mean GR.mmHg A wave1.04m/sMV Peak GR.mmHg E/A ratio0.62D MVAcm2 DECEL [id number] 1/2 [id number] IVRTmsDop MVA3.16cm2 Aortic Valve Aortic ValveAortic Stenosis V11.02m/[place] Mean GR.5mmHg V21.52m/[place] Peak GR.9mmHg LVOT Diameter2.4 (1.8-2.4cm)Doppler AVA3.03cm2 Tricuspid Valve TR Velocity2.48m/s [id number] Conclusion Moderately to severely reduced left ventricular systolic function estimated ejection fraction 35%. T here is anterior anteroapical anterolateral wall akinesia. There is a grade1 diastolic dysfunction. Normal right ventricular size and dimension. Normal right ventricular systolic function. Normal biatrial size and dimension. Normal aortic valve structure and function. Normal mitral valve structure and function. Normal tricuspid valve structure and function. The pulmonary valve is grossly normal. No pericardial effusion.
[2024-01-26] MEDS: MORPHINE SULFATE INJ 2 MG/ml SYRG IV PRN (14:22)
--- NOTE | 2024-01-26 14:28 | DVHPN2 ---
Reviewed: Care Plan, H&P, Labs, Medications, Previous Orders, Radiology Changes from previous H/P or p: No Changes, Changes General: Per HPI Eyes: No Pain, No Vision change, No Conjunctivae inflammation, No Eyelid inflammation, No Other, No Redness ENT: No Ear pain, No Ear discharge, No Nose pain, No Nose discharge, No Nose congestion, No Mouth pain, No Mouth swelling, No Throat pain, No Throat swelling, No Other Cardiovascular: No Chest Pain, No Palpitations, No Orthopnea, No Paroxysmal Noc. Dyspnea, No Edema, No Lt Headedness, No Other Respiratory: No Cough, No Dry; Shortness of breath, SOB with excertion; No Wheezing, No Hemoptysis, No Pleuritic Pain, No Sputum; Other (SOB at rest) Gastrointestinal: No Nausea, No Vomiting, No Abdominal Pain, No Diarrhea, No Constipation, No Melena, No Hematochezia, No Other Genitourinary: No Dysuria, No Frequency, No Incontinence, No Hematuria, No Retention, No Other Musculoskeletal: No other, No neck pain, No shoulder pain, No arm pain, No back pain, No hand pain, No leg pain, No foot pain Skin: No Rash, No Lesions, No Jaundice, No Bruising, No Other Objective Vitals Vital Signs Date Time Temp Pulse Resp B/P (MAP) Pulse Ox O2 Delivery O2 Flow Rate FiO2 01/26/24 14:22 79 20 135/75 01/26/24 13:30 97.7 98 97.7 01/26/24 07:40 Nasal Cannula* 4 36 Intake/Output Intake and Output 01/26/24 07:00 Intake Total 2221 ml Output Total 1075 ml Balance 1146 ml Intake Oral 1380 ml IV Total 841 ml Output Urine Total 1075 ml General Appearance: Alert, Oriented X3, Cooperative HEENT: Atraumatic Cardiovascular: Regular rate, Normal S1 Abdomen: Normal bowel sounds Medications Current Medications Medications Dose Ordered Sig/Pedro Route Start Time Stop Time Status Last Admin Dose Admin Hydralazine HCl 10 mg Q6HP PRN IV 01/24/24 22:15 Atorvastatin Calcium 20 mg HS PO 01/25/24 22:00 01/25/24 21:33 20 MG Lisinopril 20 mg DAILY PO 01/25/24 10:00 01/26/24 08:57 20 MG Sodium Chloride 1,000 ml @ 60 mls/hr [id number] IV 01/24/24 22:15 01/25/24 18:16 60 MLS/HR Acetaminophen/ Hydrocodone Bitart 1 tab Q4HP PRN PO 01/24/24 22:15 01/26/24 06:08 1 TAB Ondansetron HCl 4 mg Q4HP PRN IV 01/24/24 22:15 Docusate Sodium 100 mg BIDPRN PRN PO 01/24/24 22:15 Acetaminophen 650 mg Q6HP PRN PO 01/24/24 22:15 Morphine Sulfate 2 mg Q4HPRN PRN IV 01/24/24 22:15 01/26/24 14:22 2 MG Nitroglycerin 0.4 mg Q5MINP PRN SL 01/24/24 22:45 Morphine Sulfate 2 mg Q30M PRN IV 01/24/24 22:45 Ceftriaxone Sodium 50 ml @ 100 mls/hr DAILY@09 IV 01/26/24 09:00 01/26/24 08:56 100 MLS/HR Heparin Sodium/ Dextrose 250 ml @ 20 mls/hr [id number] IV 01/25/24 21:45 01/26/24 14:23 20 MLS/HR Laboratory Results Laboratory Tests 01/25/24 06:29 01/26/24 05:07 Coagulation Test 01/25/24 19:19 01/26/24 05:07 01/26/24 11:16 Prothrombin Time 12.9 sec (9.3-11.8) H 12.7 sec (9.3-11.8) H 12.7 sec (9.3-11.8) H Prothrombin Time INR 1.24 (0.9-1.15) H 1.22 (0.9-1.15) H 1.22 (0.9-1.15) H Activated Partial Thromboplast Time 43.0 SEC (24.5-34.5) H 62.1 SEC (24.5-34.5) H 53.1 SEC (24.5-34.5) H Labs and/or images reviewed: Labs reviewed by me, Image(s) reviewed by me Assessment/Plan Assessment/Plan Bilateral pulmonary embolism Leukocytosis, unspecified Right leg DVT Acute chest pain Generalized weakness Acute dyspnea Acute embolism and thrombosis of right popliteal vein 01/25/2024: continue with IV heparin drip. Pt still hypoxic. Pt does not use home O2 Plan discussed with: Patient Date of Service: Jan 25, 2024 Billing Provider: JUDY FITZPATRICK DO Common Visit Codes: [id number] INP/OBS CARE(HIGH) JUDY FITZPATRICK DO Jan 26, 2024 14:28
--- NOTE | 2024-01-26 15:38 | DVHPN2 ---
Consult Progress Note Subjective Patient reports: Feels better Review of Systems: RESPIRATORY:Abnormal (sob, slight improvement) Objective vital signs Vital Sign Date Time Temp Pulse Resp B/P (MAP) Pulse Ox O2 Delivery O2 Flow Rate FiO2 01/26/24 14:22 79 20 135/75 01/26/24 13:30 97.7 98 97.7 01/26/24 07:40 Nasal Cannula* 4 36 Total Intake and Output 01/25/24 01/25/24 01/26/24 15:00 23:00 07:00 Intake Total 1461 ml 760 ml Output Total 325 ml 750 ml Balance 1136 ml 10 ml medications Current Medications Medications Dose Ordered Sig/Pedro Route Start Time Stop Time Status Last Admin Dose Admin Hydralazine HCl 10 mg Q6HP PRN IV 01/24/24 22:15 Atorvastatin Calcium 20 mg HS PO 01/25/24 22:00 01/25/24 21:33 20 MG Lisinopril 20 mg DAILY PO 01/25/24 10:00 01/26/24 08:57 20 MG Sodium Chloride 1,000 ml @ 60 mls/hr [id number] IV 01/24/24 22:15 01/25/24 18:16 60 MLS/HR Acetaminophen/ Hydrocodone Bitart 1 tab Q4HP PRN PO 01/24/24 22:15 01/26/24 06:08 1 TAB Ondansetron HCl 4 mg Q4HP PRN IV 01/24/24 22:15 Docusate Sodium 100 mg BIDPRN PRN PO 01/24/24 22:15 Acetaminophen 650 mg Q6HP PRN PO 01/24/24 22:15 Morphine Sulfate 2 mg Q4HPRN PRN IV 01/24/24 22:15 01/26/24 14:22 2 MG Nitroglycerin 0.4 mg Q5MINP PRN SL 01/24/24 22:45 Morphine Sulfate 2 mg Q30M PRN IV 01/24/24 22:45 Ceftriaxone Sodium 50 ml @ 100 mls/hr DAILY@09 IV 01/26/24 09:00 01/26/24 08:56 100 MLS/HR Heparin Sodium/ Dextrose 250 ml @ 20 mls/hr [id number] IV 01/25/24 21:45 01/26/24 14:23 20 MLS/HR Examination: LUNGS:Abnormal (rales/diminished) laboratory and microbiology Laboratory Tests 01/26/24 05:07 01/25/24 06:29 Test 01/25/24 06:29 Range/Units Serum Glucose 122 H 74-106 mg/dL Problem List/Assessment/Plan Problem List/Assessment/Plan Assessment (Dr. Donato) * Acute bilateral pulmonary embolism, possible right heart strain - CTA showing large bilateral filling defects suggestive of pulmonary emboli, right heart strain. Follow-up echo shows severely reduced LVEF 35%, anterior and anterior apical and anterior lateral wall akinesis. Normal right ventricle size and systolic function, no right heart strain. Continue on anticoagulation with heparin drip. * Acute hypoxic respiratory failure - on O2 supplementation. Continue anticoagulation therapy for PE. * Acute systolic heart failure - EF 35%. Continue, Coreg 3.125 mg twice daily, lisinopril 20 mg p.o. daily. IV fluids DC lead, Lasix 40 mg IV daily, monitor strict I&Os * RLE DVT - Ultrasound showed right popliteal DVT, right common femoral artery calcification with no flow. Continue on heparin drip * Chest pain, mildly elevated troponin - troponins stable. Downtrending. Continue heparin drip. EKG negative for acute ischemic changes. Likely in setting of acute PE. CT angiogram showing significant coronary calcification. Recommend starting on aspirin and statin. Outpatient ischemic workup once respiratory status improves. * HTN - stable, continue p.r.n. as needed. * Medication noncompliance - strongly advised medication compliance Case Discussed with Dr Donato. No right heart strain noted on echo. Continue anticoagulation therapy. EF 35% with anterior, anterior apical, and anterolateral wall akinesis. Continue on Coreg and lisinopril, IV fluids discontinue Lasix 40 mg IV daily started. Continue monitoring. This medical document was created using an electronic medical record system with voice recognition software and computerized dictation system. Although this document has been carefully reviewed, there might still be some phonetic and typographical errors. Occasional wrong-word or ``sound-alike substitutions may have occurred due to the inherent limitations of voice recognition software. These areas are purely typographical due to imperfections of the software programs and do not reflect any compromise in the patient's medical care. Please read the chart carefully and recognize, using context, where these substitutions have occurred. The treatment plan was discussed with and agreed upon by patient/family including requesting consultants and ordering of imaging/procedures. Plan discussed with: Patient Date of Service: Jan 26, 2024 Billing Provider: BENNY DONATO MD Common Visit Codes: [id number] INP/OBS CARE(HIGH) BEBETO CORTES AGACNP Jan 26, 2024 15:38
[2024-01-26] MEDS: FUROSEMIDE 20 MG/2 ML VIAL IV ONE (17:15)
[2024-01-26 17:39] LABS: INR 1.22 (0.9-1.15); Partial Thromboplastin Time 51.5 SEC (24.5-34.5); Prothrombin Time 12.7 sec (9.3-11.8)
[2024-01-26] MEDS: CARVEDILOL 3.125 MG TAB PO SCH (21:37)
[2024-01-27] VITALS (8 sets, daily range): BP systolic 114–130; BP diastolic 63–87; PULSE 65–80; RESP 18–21; TEMP 97.5–98.5; O2SAT 95–100
[2024-01-27 08:29] LABS: Basophils # (auto) 0.1 10 ^3/uL (0-0.2); Basophils % (auto) 0.6 % (0.0-2.0); Eosinophils # (auto) 0.3 10 ^3/uL (0-0.8); Eosinophils % (auto) 3.3 % (0.0-7.0); Hematocrit 46.5 % (41.0-53.0); Hemoglobin 16.1 g/dL (13.5-17.5); Lymphocytes # (auto) 1.7 10 ^3/uL (0.4-5.4); Lymphocytes % (auto) 18.3 % (10.0-50.0); Mean Corpuscular Hemoglobin 33.7 pg (28.0-32.0); Mean Corpuscular Hgb Conc. 34.5 g/dL (32.0-36.0); Mean Corpuscular Volume 97.8 fL (80.0-100.0); Monocytes # (auto) 1.1 10 ^3/uL (0-1.3); Monocytes % (auto) 11.7 % (0.0-12.0); Neutrophils # (auto) 6.1 10 ^3/uL (1.6-8.6); Neutrophils % (auto) 66.1 % (37.0-80.0); Nucleated Red Blood Cells % 0.1 %; Platelet Count (auto) 176 10^3/uL (140-450); Red Blood Cells 4.76 10^6/uL (4.5-5.90); Red Cell Distribution Width 13.4 % (11.8-14.3); White Blood Cell 9.2 10^3/uL (4.4-10.8)
[2024-01-27 08:39] LABS: INR 1.25 (0.9-1.15); Partial Thromboplastin Time 44.9 SEC (24.5-34.5)
--- NOTE | 2024-01-27 10:29 | DVHPN2 ---
Reviewed: Care Plan, H&P, Labs, Medications, Previous Orders, Radiology Changes from previous H/P or p: No Changes General: Per HPI Eyes: No Pain, No Vision change, No Conjunctivae inflammation, No Eyelid inflammation, No Other, No Redness ENT: No Ear pain, No Ear discharge, No Nose pain, No Nose discharge, No Nose congestion, No Mouth pain, No Mouth swelling, No Throat pain, No Throat swelling, No Other Cardiovascular: No Chest Pain, No Palpitations, No Orthopnea, No Paroxysmal Noc. Dyspnea, No Edema, No Lt Headedness, No Other Respiratory: No Cough, No Dry; Shortness of breath, SOB with excertion; No Wheezing, No Hemoptysis, No Pleuritic Pain, No Sputum; Other (SOB at rest) Gastrointestinal: No Nausea, No Vomiting, No Abdominal Pain, No Diarrhea, No Constipation, No Melena, No Hematochezia, No Other Genitourinary: No Dysuria, No Frequency, No Incontinence, No Hematuria, No Retention, No Other Musculoskeletal: No other, No neck pain, No shoulder pain, No arm pain, No back pain, No hand pain, No leg pain, No foot pain Skin: No Rash, No Lesions, No Jaundice, No Bruising, No Other Objective Vitals Vital Signs Date Time Temp Pulse Resp B/P (MAP) Pulse Ox O2 Delivery O2 Flow Rate FiO2 01/27/24 09:00 98.1 70 18 121/72 (88) 95 98.1 01/26/24 20:10 Nasal Cannula* 4 36 Intake/Output Intake and Output 01/27/24 07:00 Intake Total 1670 ml Output Total 2600 ml Balance -930 ml Intake Oral 1400 ml IV Total 270 ml Output Urine Total 2600 ml General Appearance: Alert, Oriented X3, Cooperative HEENT: Atraumatic Cardiovascular: Regular rate, Normal S1 Abdomen: Normal bowel sounds Medications Current Medications Medications Dose Ordered Sig/Pedro Route Start Time Stop Time Status Last Admin Dose Admin Hydralazine HCl 10 mg Q6HP PRN IV 01/24/24 22:15 Atorvastatin Calcium 20 mg HS PO 01/25/24 22:00 01/26/24 21:37 20 MG Lisinopril 20 mg DAILY PO 01/25/24 10:00 01/26/24 08:57 20 MG Acetaminophen/ Hydrocodone Bitart 1 tab Q4HP PRN PO 01/24/24 22:15 01/26/24 06:08 1 TAB Ondansetron HCl 4 mg Q4HP PRN IV 01/24/24 22:15 Docusate Sodium 100 mg BIDPRN PRN PO 01/24/24 22:15 Acetaminophen 650 mg Q6HP PRN PO 01/24/24 22:15 Morphine Sulfate 2 mg Q4HPRN PRN IV 01/24/24 22:15 01/27/24 05:54 2 MG Nitroglycerin 0.4 mg Q5MINP PRN SL 01/24/24 22:45 Morphine Sulfate 2 mg Q30M PRN IV 01/24/24 22:45 Ceftriaxone Sodium 50 ml @ 100 mls/hr DAILY@09 IV 01/26/24 09:00 01/26/24 08:56 100 MLS/HR Carvedilol 3.125 mg Q12HR PO 01/26/24 22:00 01/26/24 21:37 3.125 MG Furosemide 40 mg DAILY IV 01/27/24 10:00 Heparin Sodium/ Dextrose 250 ml @ 22 mls/hr [id number] IV 01/27/24 10:00 Laboratory Results Laboratory Tests 01/25/24 06:29 01/27/24 07:21 Coagulation Test 01/26/24 11:16 01/26/24 17:00 01/27/24 07:21 Prothrombin Time 12.7 sec (9.3-11.8) H 12.7 sec (9.3-11.8) H 13.0 sec (9.3-11.8) H Prothrombin Time INR 1.22 (0.9-1.15) H 1.22 (0.9-1.15) H 1.25 (0.9-1.15) H Activated Partial Thromboplast Time 53.1 SEC (24.5-34.5) H 51.5 SEC (24.5-34.5) H 44.9 SEC (24.5-34.5) H Assessment/Plan Assessment/Plan Bilateral pulmonary embolism Leukocytosis, unspecified Right leg DVT Acute chest pain, unlikely ACS Generalized weakness Acute dyspnea Acute embolism and thrombosis of right popliteal vein 01/25/2024: continue with IV heparin drip. Pt still hypoxic. Pt does not use home O2 01/26/2024: still hypoxic and has chest pain (sharp) on exertion. remains on heparin drip until hypoxia improves further Plan discussed with: Patient Date of Service: Jan 26, 2024 Billing Provider: JUDY FITZPATRICK DO Common Visit Codes: [id number] INP/OBS CARE(HIGH) JUDY FITZPATRICK DO Jan 27, 2024 10:29
[2024-01-27] MEDS: FUROSEMIDE 20 MG/2 ML VIAL IV SCH (10:30)
--- NOTE | 2024-01-27 10:40 | DVHPN2 ---
Consult Progress Note Subjective Other Systems: Patient in normal sinus rhythm on telemetry monitor. Patient remains on 4L nasal cannula at time of assessment. Objective vital signs Vital Sign Date Time Temp Pulse Resp B/P (MAP) Pulse Ox O2 Delivery O2 Flow Rate FiO2 01/27/24 10:31 70 121/70 01/27/24 09:00 98.1 18 95 98.1 01/26/24 20:10 Nasal Cannula* 4 36 Total Intake and Output 01/26/24 01/26/24 01/27/24 15:00 23:00 07:00 Intake Total 450 ml 1220 ml Output Total 900 ml 1700 ml Balance -450 ml -480 ml medications Current Medications Medications Dose Ordered Sig/Pedro Route Start Time Stop Time Status Last Admin Dose Admin Hydralazine HCl 10 mg Q6HP PRN IV 01/24/24 22:15 Atorvastatin Calcium 20 mg HS PO 01/25/24 22:00 01/26/24 21:37 20 MG Lisinopril 20 mg DAILY PO 01/25/24 10:00 01/27/24 10:30 20 MG Acetaminophen/ Hydrocodone Bitart 1 tab Q4HP PRN PO 01/24/24 22:15 01/26/24 06:08 1 TAB Ondansetron HCl 4 mg Q4HP PRN IV 01/24/24 22:15 Docusate Sodium 100 mg BIDPRN PRN PO 01/24/24 22:15 Acetaminophen 650 mg Q6HP PRN PO 01/24/24 22:15 Morphine Sulfate 2 mg Q4HPRN PRN IV 01/24/24 22:15 01/27/24 05:54 2 MG Nitroglycerin 0.4 mg Q5MINP PRN SL 01/24/24 22:45 Morphine Sulfate 2 mg Q30M PRN IV 01/24/24 22:45 Ceftriaxone Sodium 50 ml @ 100 mls/hr DAILY@09 IV 01/26/24 09:00 01/27/24 10:29 100 MLS/HR Carvedilol 3.125 mg Q12HR PO 01/26/24 22:00 01/27/24 10:31 3.125 MG Furosemide 40 mg DAILY IV 01/27/24 10:00 01/27/24 10:30 40 MG Heparin Sodium/ Dextrose 250 ml @ 22 mls/hr [id number] IV 01/27/24 10:00 Examination: GENERAL:Abnormal (Generalized weakness), LUNGS:Abnormal (Diminished bilateral lower lobe sounds), CVS:Normal, NEURO:Normal laboratory and microbiology Laboratory Tests 01/27/24 07:21 01/25/24 06:29 Test 01/25/24 06:29 Range/Units Serum Glucose 122 H 74-106 mg/dL Problem List/Assessment/Plan Problem List/Assessment/Plan Acute bilateral pulmonary embolism, ruled out right heart strain Acute on chronic decompensated HFrEF, NYHA class III Acute hypoxic respiratory failure NSTEMI type II secondary to above Hypertension Right lower extremity DVT Morbid obesity, Class 2 Medical noncompliance Plan/recommendations (Dr. Howard): * Echocardiogram reveals EF 35%, no evidence of right heart strain * Initiate GDMT for CHF as tolerated * Borderline potassium levels, will hold spironolactone for now * Continue heparin drip * Preload and afterload reduction * Lipid-lowering agent * Risk factor modifications, counseled * Adherence to medications Patient seen and examined at bedside with . At this time, patient is clinically stable. We will consider possible IVC filter versus thrombectomy versus medical management per patient clinical progression. We will continue to follow closely. Thank you for allowing us to care for this patient. Please call with any questions or concerns. This medical document was created using an electronic medical record system with voice recognition software and computerized dictation system. Although this document has been carefully reviewed, there might still be some phonetic and typographical errors. Occasional wrong-word or ``sound-alike substitutions may have occurred due to the inherent limitations of voice recognition software. These areas are purely typographical due to imperfections of the software programs and do not reflect any compromise in the patient's medical care. Please read the chart carefully and recognize, using context, where these substitutions have occurred. Plan discussed with: Patient Date of Service: Jan 27, 2024 Billing Provider: BENNY HOWARD MD Common Visit Codes: [id number] INP/OBS CARE(HIGH) DEV BERRIOS [employer] REVIEWING [employer]ICER Jan 27, 2024 10:40
[2024-01-27] MEDS: HEPARIN DRIP/D5W 100UNITS/ML 250 ML IV SCH ×2 (10:46→18:31)
--- NOTE | 2024-01-27 13:25 | DVHPN2 ---
Reviewed: Care Plan, H&P, Labs, Medications, Previous Orders, Radiology Changes from previous H/P or p: No Changes General: Per HPI Eyes: No Pain, No Vision change, No Conjunctivae inflammation, No Eyelid inflammation, No Other, No Redness ENT: No Ear pain, No Ear discharge, No Nose pain, No Nose discharge, No Nose congestion, No Mouth pain, No Mouth swelling, No Throat pain, No Throat swelling, No Other Cardiovascular: No Chest Pain, No Palpitations, No Orthopnea, No Paroxysmal Noc. Dyspnea, No Edema, No Lt Headedness, No Other Respiratory: No Cough, No Dry; Shortness of breath, SOB with excertion; No Wheezing, No Hemoptysis, No Pleuritic Pain, No Sputum; Other (SOB at rest) Gastrointestinal: No Nausea, No Vomiting, No Abdominal Pain, No Diarrhea, No Constipation, No Melena, No Hematochezia, No Other Genitourinary: No Dysuria, No Frequency, No Incontinence, No Hematuria, No Retention, No Other Musculoskeletal: No other, No neck pain, No shoulder pain, No arm pain, No back pain, No hand pain, No leg pain, No foot pain Skin: No Rash, No Lesions, No Jaundice, No Bruising, No Other Objective Vitals Vital Signs Date Time Temp Pulse Resp B/P (MAP) Pulse Ox O2 Delivery O2 Flow Rate FiO2 01/27/24 10:31 70 121/70 01/27/24 09:00 98.1 18 95 98.1 01/27/24 08:00 Nasal Cannula* 4 36 Intake/Output Intake and Output 01/27/24 07:00 Intake Total 1670 ml Output Total 2600 ml Balance -930 ml Intake Oral 1400 ml IV Total 270 ml Output Urine Total 2600 ml General Appearance: Alert, Oriented X3, Cooperative HEENT: Atraumatic Cardiovascular: Regular rate, Normal S1 Abdomen: Normal bowel sounds Medications Current Medications Medications Dose Ordered Sig/Pedro Route Start Time Stop Time Status Last Admin Dose Admin Hydralazine HCl 10 mg Q6HP PRN IV 01/24/24 22:15 Atorvastatin Calcium 20 mg HS PO 01/25/24 22:00 01/26/24 21:37 20 MG Lisinopril 20 mg DAILY PO 01/25/24 10:00 01/27/24 10:30 20 MG Acetaminophen/ Hydrocodone Bitart 1 tab Q4HP PRN PO 01/24/24 22:15 01/26/24 06:08 1 TAB Ondansetron HCl 4 mg Q4HP PRN IV 01/24/24 22:15 Docusate Sodium 100 mg BIDPRN PRN PO 01/24/24 22:15 Acetaminophen 650 mg Q6HP PRN PO 01/24/24 22:15 Morphine Sulfate 2 mg Q4HPRN PRN IV 01/24/24 22:15 01/27/24 05:54 2 MG Nitroglycerin 0.4 mg Q5MINP PRN SL 01/24/24 22:45 Morphine Sulfate 2 mg Q30M PRN IV 01/24/24 22:45 Ceftriaxone Sodium 50 ml @ 100 mls/hr DAILY@09 IV 01/26/24 09:00 01/27/24 10:29 100 MLS/HR Carvedilol 3.125 mg Q12HR PO 01/26/24 22:00 01/27/24 10:31 3.125 MG Furosemide 40 mg DAILY IV 01/27/24 10:00 01/27/24 10:30 40 MG Heparin Sodium/ Dextrose 250 ml @ 22 mls/hr [id number] IV 01/27/24 10:00 01/27/24 10:46 22 MLS/HR Laboratory Results Laboratory Tests 01/25/24 06:29 01/27/24 07:21 Coagulation Test 01/26/24 17:00 01/27/24 07:21 Prothrombin Time 12.7 sec (9.3-11.8) H 13.0 sec (9.3-11.8) H Prothrombin Time INR 1.22 (0.9-1.15) H 1.25 (0.9-1.15) H Activated Partial Thromboplast Time 51.5 SEC (24.5-34.5) H 44.9 SEC (24.5-34.5) H Labs and/or images reviewed: Labs reviewed by me, Image(s) reviewed by me Assessment/Plan Assessment/Plan * Acute bilateral pulmonary embolism, possible right heart strain - CTA showing large bilateral filling defects suggestive of pulmonary emboli, right heart strain. Follow-up echo shows severely reduced LVEF 35%, anterior and anterior apical and anterior lateral wall akinesis. Normal right ventricle size and systolic function, no right heart strain. Continue on anticoagulation with heparin drip. * Acute hypoxic respiratory failure - on O2 supplementation. Continue anticoagulation therapy for PE. * Acute systolic heart failure - EF 35%. Continue, Coreg 3.125 mg twice daily, lisinopril 20 mg p.o. daily. IV fluids DC lead, Lasix 40 mg IV daily, monitor strict I&Os * RLE DVT - Ultrasound showed right popliteal DVT, right common femoral artery calcification with no flow. Continue on heparin drip * Chest pain, mildly elevated troponin - troponins stable. Downtrending. Continue heparin drip. EKG negative for acute ischemic changes. Likely in setting of acute PE. CT angiogram showing significant coronary calcification. Recommend starting on aspirin and statin. Outpatient ischemic workup once respiratory status improves. * HTN - stable, continue p.r.n. as needed. * Medication noncompliance - strongly advised medication compliance * Cardiology consult by Dr. Donato appreciated * Critical Care time spent 65 minutes Plan discussed with: Patient Date of Service: Jan 27, 2024 Billing Provider: LARS CHOU MD Common Visit Codes: [id number] CARE 30-74 MIN LARS CHOU MD Jan 27, 2024 13:25
[2024-01-27 17:18] LABS: INR 1.19 (0.9-1.15); Partial Thromboplastin Time 47.4 SEC (24.5-34.5); Prothrombin Time 12.5 sec (9.3-11.8)
[2024-01-27 23:06] LABS: Amphetamine Screen, Urine Neg (NEGATIVE); Barbiturate Scree,Urine Neg (NEGATIVE); Benzodiazephine Screen, Urine Neg (NEGATIVE); Cocaine Screen, Urine Neg (NEGATIVE); Opiate Scree,Urine Neg (NEGATIVE)
[2024-01-27 23:07] LABS: Cannabinoid Screen, Urine Pos (NEGATIVE); Phencyclidine Screen, Urine Neg (NEGATIVE)
[2024-01-28] VITALS (10 sets, daily range): BP systolic 99–133; BP diastolic 62–86; PULSE 63–97; RESP 17–20; TEMP 97.5–98.4; O2SAT 93–98
[2024-01-28 00:46] LABS: INR 1.25 (0.9-1.15); Partial Thromboplastin Time 65.3 SEC (24.5-34.5)
[2024-01-28 07:19] LABS: Basophils # (auto) 0.1 10 ^3/uL (0-0.2); Eosinophils # (auto) 0.3 10 ^3/uL (0-0.8); Eosinophils % (auto) 3.2 % (0.0-7.0); Hematocrit 47.3 % (41.0-53.0); Hemoglobin 16.2 g/dL (13.5-17.5); Lymphocytes # (auto) 1.8 10 ^3/uL (0.4-5.4); Lymphocytes % (auto) 19.3 % (10.0-50.0); Mean Corpuscular Hemoglobin 33.7 pg (28.0-32.0); Mean Corpuscular Hgb Conc. 34.2 g/dL (32.0-36.0); Mean Corpuscular Volume 98.5 fL (80.0-100.0); Monocytes # (auto) 1.3 10 ^3/uL (0-1.3); Monocytes % (auto) 13.6 % (0.0-12.0); Neutrophils # (auto) 5.9 10 ^3/uL (1.6-8.6); Neutrophils % (auto) 62.9 % (37.0-80.0); Nucleated Red Blood Cells % 0.1 %; Platelet Count (auto) 205 10^3/uL (140-450); Red Cell Distribution Width 13.3 % (11.8-14.3); White Blood Cell 9.4 10^3/uL (4.4-10.8)
[2024-01-28 07:20] LABS: Calcium 9.9 mg/dL (8.7-10.4); Chloride 100 mmol/L (98-107); Potassium 4.1 mmol/L (3.5-5.1); Sodium 137 mmol/L (136-145)
[2024-01-28 07:21] LABS: Anion Gap 6 (5-15); Carbon Dioxide 31 mmol/L (20-31)
[2024-01-28 07:26] LABS: BUN/Creatinine Ratio 11.1 (10.0-20.0); Blood Urea Nitrogen 10 mg/dL (9-23); Glucose 113 mg/dL (74-106); Triglycerides 106 mg/dL (< 150)
[2024-01-28 07:27] LABS: LDL Cholesterol 88 mg/dL (< 100); Magnesium 2.1 mg/dL (1.6-2.6)
[2024-01-28 07:28] LABS: Cholesterol 134 mg/dL (< 200); HDL Cholesterol 33 mg/dL (40-59)
--- NOTE | 2024-01-28 10:18 | DVHPN2 ---
Consult Progress Note Subjective Other Systems: Patient in normal sinus rhythm at time of assessment. Objective vital signs Vital Sign Date Time Temp Pulse Resp B/P (MAP) Pulse Ox O2 Delivery O2 Flow Rate FiO2 01/28/24 08:51 97.5 66 18 133/86 (102) 98 97.5 01/27/24 20:00 Nasal Cannula* 4 36 Total Intake and Output 01/27/24 01/27/24 01/28/24 15:00 23:00 07:00 Intake Total 1026 ml 500 ml Output Total 1300 ml 3400 ml Balance -274 ml -2900 ml medications Current Medications Medications Dose Ordered Sig/Pedro Route Start Time Stop Time Status Last Admin Dose Admin Hydralazine HCl 10 mg Q6HP PRN IV 01/24/24 22:15 Atorvastatin Calcium 20 mg HS PO 01/25/24 22:00 01/27/24 22:31 20 MG Lisinopril 20 mg DAILY PO 01/25/24 10:00 01/27/24 10:30 20 MG Acetaminophen/ Hydrocodone Bitart 1 tab Q4HP PRN PO 01/24/24 22:15 01/26/24 06:08 1 TAB Ondansetron HCl 4 mg Q4HP PRN IV 01/24/24 22:15 Docusate Sodium 100 mg BIDPRN PRN PO 01/24/24 22:15 Acetaminophen 650 mg Q6HP PRN PO 01/24/24 22:15 Morphine Sulfate 2 mg Q4HPRN PRN IV 01/24/24 22:15 01/28/24 06:57 2 MG Nitroglycerin 0.4 mg Q5MINP PRN SL 01/24/24 22:45 Morphine Sulfate 2 mg Q30M PRN IV 01/24/24 22:45 Ceftriaxone Sodium 50 ml @ 100 mls/hr DAILY@09 IV 01/26/24 09:00 01/27/24 10:29 100 MLS/HR Carvedilol 3.125 mg Q12HR PO 01/26/24 22:00 01/27/24 22:31 3.125 MG Furosemide 40 mg DAILY IV 01/27/24 10:00 01/27/24 10:30 40 MG Empaglifozin 10 mg DAILY PO 01/28/24 10:00 Heparin Sodium/ Dextrose 250 ml @ 24 mls/hr [id number] IV 01/27/24 17:45 01/28/24 04:14 24 MLS/HR Examination: GENERAL:Abnormal (Generalized weakness), LUNGS:Abnormal (Diminished bilateral lower lobes), CVS:Normal, NEURO:Normal laboratory and microbiology Laboratory Tests 01/28/24 06:30 Test 01/28/24 06:30 Range/Units Serum Glucose 113 H 74-106 mg/dL Problem List/Assessment/Plan Problem List/Assessment/Plan Acute bilateral pulmonary embolism, ruled out right heart strain Acute on chronic decompensated HFrEF, NYHA class III Acute hypoxic respiratory failure NSTEMI type II secondary to above Hypertension Right lower extremity DVT Morbid obesity, Class 2 Medical noncompliance Plan/recommendations (Dr. Howard): * Echocardiogram reveals EF 35%, no evidence of right heart strain * Continue GDMT for CHF as tolerated * Borderline potassium levels, will hold spironolactone for now * Continue heparin drip * Preload and afterload reduction * Lipid-lowering agent * Risk factor modifications, counseled * Adherence to medications Patient seen and examined at bedside with . At this time, patient is clinically stable. We will consider possible IVC filter versus thrombectomy versus medical management per patient clinical progression. We will reassess tomorrow for possible procedure depending on patient clinical status. Thank you for allowing us to care for this patient. Please call with any questions or concerns. This medical document was created using an electronic medical record system with voice recognition software and computerized dictation system. Although this document has been carefully reviewed, there might still be some phonetic and typographical errors. Occasional wrong-word or ``sound-alike substitutions may have occurred due to the inherent limitations of voice recognition software. These areas are purely typographical due to imperfections of the software programs and do not reflect any compromise in the patient's medical care. Please read the chart carefully and recognize, using context, where these substitutions have occurred. Plan discussed with: Patient Date of Service: Jan 28, 2024 Billing Provider: BENNY HOWARD MD Common Visit Codes: [id number] INP/OBS CARE(HIGH) DEV BERRIOS [employer] IDENTIFICATION SPECIALIST Jan 28, 2024 10:18
[2024-01-28] MEDS: EMPAGLIFLOZIN 10 MG TAB PO SCH (10:25)
[2024-01-28 10:53] LABS: INR 1.25 (0.9-1.15); Partial Thromboplastin Time 63.1 SEC (24.5-34.5)
--- NOTE | 2024-01-28 11:51 | DVHPN2 ---
Reviewed: Care Plan, H&P, Labs, Medications, Previous Orders, Radiology Changes from previous H/P or p: No Changes General: Per HPI Eyes: No Pain, No Vision change, No Conjunctivae inflammation, No Eyelid inflammation, No Other, No Redness ENT: No Ear pain, No Ear discharge, No Nose pain, No Nose discharge, No Nose congestion, No Mouth pain, No Mouth swelling, No Throat pain, No Throat swelling, No Other Cardiovascular: No Chest Pain, No Palpitations, No Orthopnea, No Paroxysmal Noc. Dyspnea, No Edema, No Lt Headedness, No Other Respiratory: No Cough, No Dry; Shortness of breath, SOB with excertion; No Wheezing, No Hemoptysis, No Pleuritic Pain, No Sputum; Other (SOB at rest) Gastrointestinal: No Nausea, No Vomiting, No Abdominal Pain, No Diarrhea, No Constipation, No Melena, No Hematochezia, No Other Genitourinary: No Dysuria, No Frequency, No Incontinence, No Hematuria, No Retention, No Other Musculoskeletal: No other, No neck pain, No shoulder pain, No arm pain, No back pain, No hand pain, No leg pain, No foot pain Skin: No Rash, No Lesions, No Jaundice, No Bruising, No Other Objective Vitals Vital Signs Date Time Temp Pulse Resp B/P (MAP) Pulse Ox O2 Delivery O2 Flow Rate FiO2 01/28/24 11:01 97 20 97 Nasal Cannula* 4 36 01/28/24 10:24 133/86 01/28/24 08:51 97.5 97.5 Intake/Output Intake and Output 01/28/24 07:00 Intake Total 1526 ml Output Total 4700 ml Balance -3174 ml Intake Oral 1300 ml IV Total 226 ml Output Urine Total 4700 ml General Appearance: Alert, Oriented X3, Cooperative HEENT: Atraumatic Cardiovascular: Regular rate, Normal S1 Abdomen: Normal bowel sounds Medications Current Medications Medications Dose Ordered Sig/Pedro Route Start Time Stop Time Status Last Admin Dose Admin Hydralazine HCl 10 mg Q6HP PRN IV 01/24/24 22:15 Atorvastatin Calcium 20 mg HS PO 01/25/24 22:00 01/27/24 22:31 20 MG Lisinopril 20 mg DAILY PO 01/25/24 10:00 01/28/24 10:23 20 MG Acetaminophen/ Hydrocodone Bitart 1 tab Q4HP PRN PO 01/24/24 22:15 01/26/24 06:08 1 TAB Ondansetron HCl 4 mg Q4HP PRN IV 01/24/24 22:15 Docusate Sodium 100 mg BIDPRN PRN PO 01/24/24 22:15 Acetaminophen 650 mg Q6HP PRN PO 01/24/24 22:15 Morphine Sulfate 2 mg Q4HPRN PRN IV 01/24/24 22:15 01/28/24 06:57 2 MG Nitroglycerin 0.4 mg Q5MINP PRN SL 01/24/24 22:45 Morphine Sulfate 2 mg Q30M PRN IV 01/24/24 22:45 Ceftriaxone Sodium 50 ml @ 100 mls/hr DAILY@09 IV 01/26/24 09:00 01/28/24 10:22 100 MLS/HR Carvedilol 3.125 mg Q12HR PO 01/26/24 22:00 01/28/24 10:24 3.125 MG Furosemide 40 mg DAILY IV 01/27/24 10:00 01/28/24 10:23 40 MG Empaglifozin 10 mg DAILY PO 01/28/24 10:00 01/28/24 10:25 10 MG Heparin Sodium/ Dextrose 250 ml @ 24 mls/hr [id number] IV 01/27/24 17:45 01/28/24 04:14 24 MLS/HR Laboratory Results Laboratory Tests 01/28/24 06:30 Chemistry Test 01/28/24 06:30 Calcium Level 9.9 mg/dL (8.7-10.4) Magnesium Level 2.1 mg/dL (1.6-2.6) Coagulation Test 01/27/24 16:19 01/28/24 00:21 01/28/24 10:00 Prothrombin Time 12.5 sec (9.3-11.8) H 13.0 sec (9.3-11.8) H 13.0 sec (9.3-11.8) H Prothrombin Time INR 1.19 (0.9-1.15) H 1.25 (0.9-1.15) H 1.25 (0.9-1.15) H Activated Partial Thromboplast Time 47.4 SEC (24.5-34.5) H 65.3 SEC (24.5-34.5) H 63.1 SEC (24.5-34.5) H Lipid panel Test 01/28/24 06:30 Cholesterol Level 134 mg/dL (< 200) HDL Cholesterol 33 mg/dL (40-59) L Triglycerides Level 106 mg/dL (< 150) HgA1c, TSH Test 01/28/24 06:30 Hemoglobin A1c 5.9 % A1C (<5.7) H Thyroid Stimulating Hormone (TSH) 2.04 uIU/mL (0.55-4.78) Labs and/or images reviewed: Labs reviewed by me, Image(s) reviewed by me Assessment/Plan Assessment/Plan Acute bilateral pulmonary embolism, ruled out right heart strain continue heparin drip, cardiology consult appreciated, possible thrombectomy versus IVC filter versus medical management Acute on chronic decompensated HFrEF, NYHA class III Acute hypoxic respiratory failure NSTEMI type II secondary to above Hypertension Right lower extremity DVT Morbid obesity, Class 2 Medical noncompliance Time spent 45 minutes Plan discussed with: Patient Date of Service: Jan 28, 2024 Billing Provider: LARS CHOU MD Common Visit Codes: [id number] INP/OBS CARE(HIGH) LARS CHOU MD Jan 28, 2024 11:51
[2024-01-28 16:36] LABS: INR 1.25 (0.9-1.15); Partial Thromboplastin Time 62.3 SEC (24.5-34.5)
[2024-01-28] MEDS ORDERED: MELATONIN 5 MG TAB PO ONE (22:00)
[2024-01-29] VITALS (12 sets, daily range): BP systolic 105–130; BP diastolic 57–91; PULSE 60–75; RESP 15–20; TEMP 97.7–98.1; O2SAT 93–98
[2024-01-29 07:17] LABS: Anion Gap 6 (5-15); Calcium 10.4 mg/dL (8.7-10.4); Carbon Dioxide 31 mmol/L (20-31); Chloride 98 mmol/L (98-107); Potassium 4.3 mmol/L (3.5-5.1); Sodium 135 mmol/L (136-145)
[2024-01-29 07:21] LABS: INR 1.25 (0.9-1.15)
[2024-01-29 07:23] LABS: BUN/Creatinine Ratio 13.7 (10.0-20.0); Blood Urea Nitrogen 13 mg/dL (9-23); Glucose 104 mg/dL (74-106); Magnesium 2.4 mg/dL (1.6-2.6)
[2024-01-29 07:24] LABS: Partial Thromboplastin Time 71.8 SEC (24.5-34.5)
[2024-01-29 07:32] LABS: Basophils # (auto) 0.1 10 ^3/uL (0-0.2); Basophils % (auto) 0.9 % (0.0-2.0); Eosinophils # (auto) 0.3 10 ^3/uL (0-0.8); Eosinophils % (auto) 3.4 % (0.0-7.0); Hematocrit 50.6 % (41.0-53.0); Hemoglobin 17.3 g/dL (13.5-17.5); Lymphocytes # (auto) 2.1 10 ^3/uL (0.4-5.4); Lymphocytes % (auto) 22.6 % (10.0-50.0); Mean Corpuscular Hemoglobin 33.9 pg (28.0-32.0); Mean Corpuscular Hgb Conc. 34.2 g/dL (32.0-36.0); Mean Corpuscular Volume 99.1 fL (80.0-100.0); Monocytes # (auto) 1.2 10 ^3/uL (0-1.3); Monocytes % (auto) 13.1 % (0.0-12.0); Neutrophils # (auto) 5.6 10 ^3/uL (1.6-8.6); Nucleated Red Blood Cells % 0.1 %; Platelet Count (auto) 244 10^3/uL (140-450); Red Blood Cells 5.11 10^6/uL (4.5-5.90); Red Cell Distribution Width 13.5 % (11.8-14.3); White Blood Cell 9.3 10^3/uL (4.4-10.8)
[2024-01-29 08:23] LABS: Base Excess 1.2 mmol/L (-2.0-3.0)
--- NOTE | 2024-01-29 09:16 | DVHPN2 ---
Consult Progress Note Date Seen: Jan 29, 2024 Subjective Review of Systems: CVS:Normal, RESPIRATORY:Normal, NEURO:Normal Objective vital signs Vital Sign Date Time Temp Pulse Resp B/P (MAP) Pulse Ox O2 Delivery O2 Flow Rate FiO2 01/29/24 08:45 98.1 66 18 123/78 (93) 97 98.1 01/28/24 19:50 Nasal Cannula* 4 36 Total Intake and Output 01/28/24 01/28/24 01/29/24 15:00 23:00 07:00 Intake Total 1900 ml 350 ml Output Total 5710 ml 1250 ml Balance -3810 ml -900 ml medications Current Medications Medications Dose Ordered Sig/Pedro Route Start Time Stop Time Status Last Admin Dose Admin Hydralazine HCl 10 mg Q6HP PRN IV 01/24/24 22:15 Atorvastatin Calcium 20 mg HS PO 01/25/24 22:00 01/28/24 21:25 20 MG Lisinopril 20 mg DAILY PO 01/25/24 10:00 01/28/24 10:23 20 MG Acetaminophen/ Hydrocodone Bitart 1 tab Q4HP PRN PO 01/24/24 22:15 01/29/24 05:16 1 TAB Ondansetron HCl 4 mg Q4HP PRN IV 01/24/24 22:15 Docusate Sodium 100 mg BIDPRN PRN PO 01/24/24 22:15 Acetaminophen 650 mg Q6HP PRN PO 01/24/24 22:15 Morphine Sulfate 2 mg Q4HPRN PRN IV 01/24/24 22:15 01/28/24 18:15 2 MG Nitroglycerin 0.4 mg Q5MINP PRN SL 01/24/24 22:45 Morphine Sulfate 2 mg Q30M PRN IV 01/24/24 22:45 Ceftriaxone Sodium 50 ml @ 100 mls/hr DAILY@09 IV 01/26/24 09:00 01/28/24 10:22 100 MLS/HR Carvedilol 3.125 mg Q12HR PO 01/26/24 22:00 01/28/24 10:24 3.125 MG Furosemide 40 mg DAILY IV 01/27/24 10:00 01/28/24 10:23 40 MG Empaglifozin 10 mg DAILY PO 01/28/24 10:00 01/28/24 10:25 10 MG Heparin Sodium/ Dextrose 250 ml @ 24 mls/hr [id number] IV 01/27/24 17:45 01/29/24 01:04 24 MLS/HR Examination: LUNGS:Abnormal (Diminished), CVS:Normal (NSR), NEURO:Normal laboratory and microbiology Laboratory Tests 01/29/24 05:32 Test 01/29/24 05:32 Range/Units Serum Glucose 104 74-106 mg/dL Problem List/Assessment/Plan Problem List/Assessment/Plan Acute bilateral pulmonary embolism, ruled out right heart strain Acute on chronic decompensated HFrEF, NYHA class III ?Ischemic cardiomyopathy with EF of 35% Right lower extremity DVT Acute hypoxic respiratory failure NSTEMI type II secondary to above Hypertension Morbid obesity, Class 2 Medical noncompliance Plan/recommendations (Dr. Howard) * Echocardiogram reveals EF 35%, no evidence of right heart strain * Continue GDMT for CHF, uptitrate as tolerated * Continue heparin drip for PE/DVT * Preload and afterload reduction * Risk factor modifications, counseled * Adherence to medications ABG revealed acute hypoxia on room air. Scheduled for pulmonary angiogram, possible RLE venous angiogram, and IVC filter implantation at first available. All risks and benefits of the procedures were discussed in detail with the patient agreeing to proceed. In the meantime, continue heparin drip per pharmacy protocol. Thank you for allowing us to care for this patient. Please call with any questions or concerns. This medical document was created using an electronic medical record system with voice recognition software and computerized dictation system. Although this document has been carefully reviewed, there might still be some phonetic and typographical errors. Occasional wrong-word or ``sound-alike substitutions may have occurred due to the inherent limitations of voice recognition software. These areas are purely typographical due to imperfections of the software programs and do not reflect any compromise in the patient's medical care. Please read the chart carefully and recognize, using context, where these substitutions have occurred. Plan discussed with: Patient, Other Dietary Evaluation Review Comments: follow his current cardiac diet, avoid over-eating Expected Outcomes/Goals: gradual weight loss and less issue over his lower extremities.. Date of Service: Jan 29, 2024 Billing Provider: BENNY HOWARD MD Cardiology Common Codes: [id number] [facility] SHORTY QUILES [facility] Jan 29, 2024 09:16
[2024-01-29] MEDS: SPIRONOLACTONE 25 MG TAB PO SCH (10:25)
[2024-01-29] MEDS: LISINOPRIL 5 MG TAB PO SCH (10:27)
--- NOTE | 2024-01-29 13:14 | DVHPN2 ---
Reviewed: Care Plan, H&P, Labs, Medications, Previous Orders, Radiology Changes from previous H/P or p: No Changes General: Per HPI Eyes: No Pain, No Vision change, No Conjunctivae inflammation, No Eyelid inflammation, No Other, No Redness ENT: No Ear pain, No Ear discharge, No Nose pain, No Nose discharge, No Nose congestion, No Mouth pain, No Mouth swelling, No Throat pain, No Throat swelling, No Other Cardiovascular: No Chest Pain, No Palpitations, No Orthopnea, No Paroxysmal Noc. Dyspnea, No Edema, No Lt Headedness, No Other Respiratory: No Cough, No Dry; Shortness of breath, SOB with excertion; No Wheezing, No Hemoptysis, No Pleuritic Pain, No Sputum; Other (SOB at rest) Gastrointestinal: No Nausea, No Vomiting, No Abdominal Pain, No Diarrhea, No Constipation, No Melena, No Hematochezia, No Other Genitourinary: No Dysuria, No Frequency, No Incontinence, No Hematuria, No Retention, No Other Musculoskeletal: No other, No neck pain, No shoulder pain, No arm pain, No back pain, No hand pain, No leg pain, No foot pain Skin: No Rash, No Lesions, No Jaundice, No Bruising, No Other Objective Vitals Vital Signs Date Time Temp Pulse Resp B/P (MAP) Pulse Ox O2 Delivery O2 Flow Rate FiO2 01/29/24 12:06 70 14 99/65 01/29/24 08:45 98.1 97 98.1 01/28/24 19:50 Nasal Cannula* 4 36 Intake/Output Intake and Output 01/29/24 07:00 Intake Total 2250 ml Output Total 6960 ml Balance -4710 ml Intake Oral 2250 ml Output Urine Total 6960 ml General Appearance: Alert, Oriented X3, Cooperative HEENT: Atraumatic Cardiovascular: Regular rate, Normal S1 Abdomen: Normal bowel sounds Medications Current Medications Medications Dose Ordered Sig/Pedro Route Start Time Stop Time Status Last Admin Dose Admin Hydralazine HCl 10 mg Q6HP PRN IV 01/24/24 22:15 Atorvastatin Calcium 20 mg HS PO 01/25/24 22:00 01/28/24 21:25 20 MG Acetaminophen/ Hydrocodone Bitart 1 tab Q4HP PRN PO 01/24/24 22:15 01/29/24 12:13 1 TAB Ondansetron HCl 4 mg Q4HP PRN IV 01/24/24 22:15 Docusate Sodium 100 mg BIDPRN PRN PO 01/24/24 22:15 Acetaminophen 650 mg Q6HP PRN PO 01/24/24 22:15 Morphine Sulfate 2 mg Q4HPRN PRN IV 01/24/24 22:15 01/29/24 10:13 2 MG Nitroglycerin 0.4 mg Q5MINP PRN SL 01/24/24 22:45 Morphine Sulfate 2 mg Q30M PRN IV 01/24/24 22:45 Ceftriaxone Sodium 50 ml @ 100 mls/hr DAILY@09 IV 01/26/24 09:00 01/29/24 09:44 100 MLS/HR Carvedilol 3.125 mg Q12HR PO 01/26/24 22:00 01/29/24 09:43 3.125 MG Furosemide 40 mg DAILY IV 01/27/24 10:00 01/29/24 09:45 40 MG Empaglifozin 10 mg DAILY PO 01/28/24 10:00 01/29/24 10:15 10 MG Heparin Sodium/ Dextrose 250 ml @ 24 mls/hr [id number] IV 01/27/24 17:45 01/29/24 12:05 24 MLS/HR Lisinopril 10 mg DAILY PO 01/29/24 10:00 01/29/24 10:27 10 MG Spironolactone 12.5 mg DAILY PO 01/29/24 10:00 01/29/24 10:25 12.5 MG Laboratory Results Laboratory Tests 01/29/24 05:32 Chemistry Test 01/29/24 05:32 Calcium Level 10.4 mg/dL (8.7-10.4) Magnesium Level 2.4 mg/dL (1.6-2.6) Coagulation Test 01/28/24 15:58 01/29/24 05:32 Prothrombin Time 13.0 sec (9.3-11.8) H 13.0 sec (9.3-11.8) H Prothrombin Time INR 1.25 (0.9-1.15) H 1.25 (0.9-1.15) H Activated Partial Thromboplast Time 62.3 SEC (24.5-34.5) H 71.8 SEC (24.5-34.5) *H Blood Gas Results Test 01/29/24 08:07 Arterial Blood pH 7.420 (7.350-7.450) FiO2 % 21.0 Labs and/or images reviewed: Labs reviewed by me, Image(s) reviewed by me Assessment/Plan Assessment/Plan Acute bilateral pulmonary embolism, ruled out right heart strain continue heparin drip, cardiology consult appreciated, possible thrombectomy versus IVC filter versus medical management Acute on chronic decompensated HFrEF, NYHA class III Acute hypoxic respiratory failure PaO2 54 percent NSTEMI type II secondary to above Hypertension Right lower extremity DVT Morbid obesity, Class 2 Medical noncompliance Time spent 45 minutes Scheduled for pulmonary angiogram, possible RLE venous angiogram, and IVC filter implantation at first available by Cardiology Plan discussed with: Patient Date of Service: Jan 29, 2024 Billing Provider: LARS CHOU MD Common Visit Codes: [id number] INP/OBS CARE(HIGH) LARS CHOU MD Jan 29, 2024 13:14
[2024-01-29] MEDS: HEPARIN IN NS 1000Units/500mL 1,500 ML ONE (13:51)
[2024-01-29] MEDS: IODIXANOL 320MG/ML 100ML BTL IV ONE ×3 (13:51→16:33)
[2024-01-29] MEDS: ANGIOMAX 250 MG VIAL IV ONE (13:56)
[2024-01-29] MEDS: fentaNYL CITRATE 100 MCG/2 ML VL ONE (13:57)
[2024-01-29] MEDS: SODIUM CHL 0.9% 0 ML ONE (13:57)
[2024-01-29] MEDS: LIDOCAINE 2%HCL (LOCAL ANESTH.) INJ 20ML MDV ONE (13:57)
[2024-01-29] MEDS: MIDAZOLAM HCL 2MG/2ML 2ml VIAL (1mg/ml) ONE (13:57)
--- NOTE | 2024-01-29 16:25 | DVHOP2 ---
Operative Report -Cardiology Report Details Date: 01/29/24 Preop Diagnosis: Pulmonary embolism with a hypoxemia, patient still requiring oxygen to keep saturation above 80 %, patient has features of right ventricular strain in the CT scan however in the echocardiogram was less obvious. But given that he is symptomatic we consider large-bore thrombectomy as an option to help improve oxygenation and decrease V/Q mismatch. Postop Diagnosis: Flow [id number] Malaysian system was used engaging the right main and left main pulmonary trunk, with a retrieval of minimal clot largest was 6 cm x2 cm. Clots were white and likely representing chronic thromboembolic disease, there was an accidental finding of right to left atrial shunt via an ASD or a stretched PFO from pulmonary hypertension. There was mild to moderate improvement in oxygenation with a mild reduction in peak systolic pressure from 68-44 millimeter of mercury and mean from 43 to35 mm of mercury. Surgeon: Aarti Donato MD Anesthesiologist: Conscious sedation using25 mcg of fentanyl as well as a mg IV midazolam. Anesthesia: Local Consent: The patient was informed of the risks and benefits of the procedure. These include but are not limited to complications of anesthesia, postoperative infection, incomplete relief of symptoms, recurrence of symptoms, damage to bl ood vessels, nerves and tendons, deep venous thrombosis, pulmonary embolism and possible need for repeat surgery in the future. Indications for Surgery: 58-year-old male with PMH for HLD, HTN, history of snake bite, PE and right lowe r extremity DVT, noncompliance with anticoagulation therapy, recurrent PE, presents to the hospital with shortness of breath and chest pain. Patient states that shortness of breath started approximately 1 week prior and has been progressively getting worse and patient started having increased right lower extremity pain and swelling as well as chest pain. Chest pain retrosternal, radiating up to left upper shoulder area/neck, dull pressure in nature, that worsens with deep breath. Upon evaluation in the ER patient noted to have elevated D-dimer and BNP, elevated troponins trending 186, 195, 169. CT pulmonary angio done and showed large bilateral filling defects with pulmonary artery suggestive of pulmonary emboli as well as straightening of septum and ref lux of contrast into the inferior vena cava and hepatic veins suggestive of right heart strain. EKG reviewed and shows sinus rhythm at 98 beats per minute, nonspecific T-wave abnormality. No significant ST abnormalities noted. Name of Procedure Performed 1. Ultrasound-guided right femoral venous access. 2. Right heart catheterization. 3. Right and left pulmonary artery cine angiography. 4. Flow 3/24 Malaysian system was used as a large bore thrombectomy device, with a successful retrieval of mild amount of chronic formed clots. 5. Figure of eight closure device without application of flow stasis, without evidence of complication. Procedure Details Procedure Details: Procedure note: After informed consent was obtained risks, benefits, complications, and alternatives were discussed in details with the patient who agrees to have the procedure done. At the beginning of the procedure the right groin area were prepped and draped in the regular sterile fashion. Thwapr ultrasound machine was used to map the right common femoral vein. Anterior leads guidance micropuncture was made, followed which micropuncture kit was exchanged for seven Malaysian sheath. IVC and iliac venogram was done showing patent sees with some collateral from the internal iliac vessels seen indicating chronic DVTs and thromboembolic disease. Via the seven Malaysian sheath right heart catheterization was done and the reading revealed main pulmonary artery pressure of43 with a peak of 68 and diastolic of34 mm of mercury, the right ventricular pressure was peak over five diastolic and mean of8 mm of mercury right atrial pressure was measured at nine systolic over 90 diastolic with a mean of11 mm of mercury. At the beginning of the procedure we noted the multipurpose catheter was engaging the left atrium immediately from the right atrial size indicating that there was a intra-atrial defect likely medium to large size ASD or stretched open the PFO secondary to severe pulmonary hypertension. This was confirmed via a cine angiography which shows the left atrium with a both sides having to pulmonary veins. The multipurpose catheter was then exchanged for an angled pigtail which was able to engage the right ventricle to the right ventricular outflow tract eventually to the pulmonary artery. We had great deal of difficulty trying to engage the right pulmonary artery finally we used a VTK catheter before we were able to advanced the angled catheter through the right pulmonary artery. Then using an exchange wire we were able to advanced the angled pigtail to the distal part of the right pulmonary artery, then right and left selective pulmonary angiography was done showing medium to large clot occupying the right main lower pulmonary artery and the left lower main pulmonary artery. Then a figure of eight suture application was made before the seven Malaysian sheath was exchanged over stiff wire with at way need for 4 Malaysian triever Inari sheath. Over the dilator an Amplatz stiff wire we were able to advance the flow retriever all the way to the right pulmonary artery. Starting with the right pulmonary artery we were able to retrieve white clot with a regular marginal likely indicating chronic thromboem bolic disease, then the retriever location was adjusted to the pulmonary artery we were able to retrieve a large clots was six by three cm the obstructed the main part of the retrieval requiring removal of the retrieval device completely outside the body and performing suctioning. Finally the pulmonary artery pressure measurement shows improvement to 44 systolic over25 diastolic with a mean of35 mm of mercury. Oxygen saturation also improved from 79-87 and some radiating to 93%. On room air. Given the coronary artery of the disease of the patient has I would recommend aggressive medical therapy with a anticoagulation, the addition to pulmonary hypertension therapy. With the ASD/PFO he might need assessment down the line if the pulmonary artery pressure improves. Finally the retriever with the dilator actually came out as1 unit and figure of eight suture was cinched down using flow stasis with a good control of bleeding. No hematoma or complication of the venous access was noted. Impression and plan: 1. Successful retrieval moderate size small and mild clot from the left and right pulmonary artery respectively, there was some improvement in the hemodynamics of the pulmonary artery pressure in addition to oxygenation. 2. This case likely represent chronic thromboembolic disease as we could not retrieve large amount of clot easily. There is also collateral seen at the distal part of the POLISH vena junction likely due to chronic DVT. 2. Compliance to anticoagulation is essential part of the treatment for this patient, although IVC filter could be consider, patient has no contraindication to anticoagulation in fact he is not compliant anticoagulation but he promised that he will be on compliant. 3. Internal of the right leg DVT I would repeat ultrasound of the leg tomorrow if the clot still in the popliteal veins I will consider just medical therapy, however if it propagates to the common femoral vein we might consider mechanical thrombectomy using popliteal venous access. 4. Accidental findings of right atrial to left atrial septal wall defect likely representing an ASD and possible small PFO. Patient would need a JOHANN with a bubble study assess feasibility of closure after his pulmonary artery pressure is improved. This could be done as an outpatient. 5. It will be interesting to do a CT scan of the deep venous system of the inferior vena cava as well as both iliacs all the way to the popliteal vein to assess for chronic occlusion. Condition Good Disposition AARTI DONATO MD Jan 29, 2024 16:25
[2024-01-30] VITALS (11 sets, daily range): BP systolic 98–121; BP diastolic 61–74; PULSE 62–72; RESP 16–21; TEMP 97.5–98.2; O2SAT 93–97
[2024-01-30 09:05] LABS: INR 1.26 (0.9-1.15); Prothrombin Time 13.1 sec (9.3-11.8)
[2024-01-30 09:12] LABS: Partial Thromboplastin Time 102.8 SEC (24.5-34.5)
--- NOTE | 2024-01-30 10:00 | DVH ---
Right lower extremity venous duplex Clinical History: RLE DVT Comparison: US RT LOWER DVT on DOS: 01/24/24 Findings: Duplex Doppler evaluation of the deep venous systems of right lower extremity from the common femoral veins to the popliteal veins including color Doppler and spectral/pulsed waveform analysis was perfo rmed. RIGHT SIDE: Normal compressibility and waveform variation in the right common femoral vein. Greater saphenous vei n junction is patent. Noncompressible thrombus seen in the proximal, mid and distal femoral vein, pop liteal and posterior tibial vein. Thrombus has progressed since the prior ultrasound from 01/24/2024 when thrombus was limited to the right popliteal vein. Impression: 1. Progression of occlusive thrombus in the right lower extremity now involving the entire femoral, t he popliteal and posterior tibial vein.
--- NOTE | 2024-01-30 10:57 | DVHPN2 ---
Consult Progress Note Date Seen: Jan 30, 2024 Subjective Review of Systems: CVS:Normal, RESPIRATORY:Abnormal, NEURO:Normal Other Systems: C/o SOB, mildly improved, & worsening RLE pain Objective vital signs Vital Sign Date Time Temp Pulse Resp B/P (MAP) Pulse Ox O2 Delivery O2 Flow Rate FiO2 01/30/24 10:29 130/73 01/30/24 09:57 64 01/30/24 09:54 16 01/30/24 05:00 98.2 95 98.2 01/29/24 20:00 Nasal Cannula* 4 36 Total Intake and Output 01/29/24 01/29/24 01/30/24 15:00 23:00 07:00 Intake Total 300 ml Output Total 1800 ml 900 ml Balance -1800 ml -600 ml medications Current Medications Medications Dose Ordered Sig/Pedro Route Start Time Stop Time Status Last Admin Dose Admin Hydralazine HCl 10 mg Q6HP PRN IV 01/24/24 22:15 Atorvastatin Calcium 20 mg HS PO 01/25/24 22:00 01/29/24 21:47 20 MG Acetaminophen/ Hydrocodone Bitart 1 tab Q4HP PRN PO 01/24/24 22:15 01/29/24 21:59 1 TAB Ondansetron HCl 4 mg Q4HP PRN IV 01/24/24 22:15 Docusate Sodium 100 mg BIDPRN PRN PO 01/24/24 22:15 Acetaminophen 650 mg Q6HP PRN PO 01/24/24 22:15 Morphine Sulfate 2 mg Q4HPRN PRN IV 01/24/24 22:15 01/30/24 09:54 2 MG Nitroglycerin 0.4 mg Q5MINP PRN SL 01/24/24 22:45 Morphine Sulfate 2 mg Q30M PRN IV 01/24/24 22:45 Ceftriaxone Sodium 50 ml @ 100 mls/hr DAILY@09 IV 01/26/24 09:00 01/30/24 09:00 100 MLS/HR Carvedilol 3.125 mg Q12HR PO 01/26/24 22:00 01/30/24 09:57 3.125 MG Furosemide 40 mg DAILY IV 01/27/24 10:00 01/30/24 09:55 40 MG Empaglifozin 10 mg DAILY PO 01/28/24 10:00 01/30/24 09:55 10 MG Lisinopril 10 mg DAILY PO 01/29/24 10:00 01/30/24 10:29 10 MG Spironolactone 12.5 mg DAILY PO 01/29/24 10:00 01/30/24 10:29 12.5 MG Heparin Sodium/ Dextrose 250 ml @ 21 mls/hr [id number] IV 01/30/24 10:15 Examination: GENERAL:Abnormal, LUNGS:Abnormal (Diminished), CVS:Normal, MSK:Abnormal (RLE edema worsening), NEURO:Normal laboratory and microbiology Laboratory Tests 01/29/24 05:32 Test 01/29/24 05:32 Range/Units Serum Glucose 104 74-106 mg/dL Problem List/Assessment/Plan Problem List/Assessment/Plan CTEPH with acute bilateral pulmonary embolism s/p pulmonary thrombectomy Extensive right lower extremity DVT Acute on chronic decompensated HFrEF, NYHA class III ?Ischemic cardiomyopathy with EF of 35% Acute hypoxic respiratory failure NSTEMI type II secondary to above ASD/PFO, newly diagnosed Hypertension Morbid obesity, Class 2 Medical noncompliance Plan/recommendations (Dr. Howard) * Echocardiogram reveals EF 35%, no evidence of right heart strain * Increased RVSP in the 60s mmHg seen on Pulmonary thrombectomy * GDMT for CHF, uptitrate as tolerated * Continue heparin drip for PE/DVT * Transition to Eliquis therapy when appropriate * Obtain hypercoagulability panel * Preload and afterload reduction * Outpatient JOHANN given ASD/PFO * Outpatient ischemic work-up * Risk factor modifications, counseled * Adherence to medications Repeat RLE DVT US revealed progression of occlusive thrombus involving the entire femoral, popliteal, and posterior tibial vein. Scheduled for RLE venous angiogram at first available. All risks and benefits of the procedures were discussed in detail with the patient agreeing to proceed. In the meantime, continue heparin drip per pharmacy protocol. Tentatively scheduled for IVC filter insertion on 01/31/2024. Patient and plan of care has been evaluated personally by Dr. Howard. Thank you for allowing us to care for this patient. Please call with any questions or concerns. This medical document was created using an electronic medical record system with voice recognition software and computerized dictation system. Although this document has been carefully reviewed, there might still be some phonetic and typographical errors. Occasional wrong-word or ``sound-alike substitutions may have occurred due to the inherent limitations of voice recognition software. These areas are purely typographical due to imperfections of the software programs and do not reflect any compromise in the patient's medical care. Please read the chart carefully and recognize, using context, where these substitutions have occurred. Plan discussed with: Patient, Other Dietary Evaluation Review Comments: follow his current cardiac diet, avoid over-eating Expected Outcomes/Goals: gradual weight loss and less issue over his lower extremities.. Date of Service: Jan 30, 2024 Billing Provider: BENNY HOWARD MD Cardiology Common Codes: [id number] INP/OBS CARE (High) SH[employer]Y [employer] Jan 30, 2024 10:57
[2024-01-30] MEDS: HEPARIN DRIP/D5W 100UNITS/ML 250 ML IV SCH (11:20)
--- NOTE | 2024-01-30 12:27 | DVHPN2 ---
Reviewed: Care Plan, H&P, Labs, Medications, Previous Orders, Radiology Changes from previous H/P or p: No Changes General: Per HPI Eyes: No Pain, No Vision change, No Conjunctivae inflammation, No Eyelid inflammation, No Other, No Redness ENT: No Ear pain, No Ear discharge, No Nose pain, No Nose discharge, No Nose congestion, No Mouth pain, No Mouth swelling, No Throat pain, No Throat swelling, No Other Cardiovascular: No Chest Pain, No Palpitations, No Orthopnea, No Paroxysmal Noc. Dyspnea, No Edema, No Lt Headedness, No Other Respiratory: No Cough, No Dry; Shortness of breath, SOB with excertion; No Wheezing, No Hemoptysis, No Pleuritic Pain, No Sputum; Other (SOB at rest) Gastrointestinal: No Nausea, No Vomiting, No Abdominal Pain, No Diarrhea, No Constipation, No Melena, No Hematochezia, No Other Genitourinary: No Dysuria, No Frequency, No Incontinence, No Hematuria, No Retention, No Other Musculoskeletal: No other, No neck pain, No shoulder pain, No arm pain, No back pain, No hand pain, No leg pain, No foot pain Skin: No Rash, No Lesions, No Jaundice, No Bruising, No Other Objective Vitals Vital Signs Date Time Temp Pulse Resp B/P (MAP) Pulse Ox O2 Delivery O2 Flow Rate FiO2 01/30/24 10:29 130/73 01/30/24 09:57 64 01/30/24 09:54 16 01/30/24 05:00 98.2 95 98.2 01/29/24 20:00 Nasal Cannula* 4 36 Intake/Output Intake and Output 01/30/24 07:00 Intake Total 300 ml Output Total 2700 ml Balance -2400 ml Intake Oral 300 ml Output Urine Total 2700 ml General Appearance: Alert, Oriented X3, Cooperative HEENT: Atraumatic Cardiovascular: Regular rate, Normal S1 Abdomen: Normal bowel sounds Medications Current Medications Medications Dose Ordered Sig/Pedro Route Start Time Stop Time Status Last Admin Dose Admin Hydralazine HCl 10 mg Q6HP PRN IV 01/24/24 22:15 Atorvastatin Calcium 20 mg HS PO 01/25/24 22:00 01/29/24 21:47 20 MG Acetaminophen/ Hydrocodone Bitart 1 tab Q4HP PRN PO 01/24/24 22:15 01/29/24 21:59 1 TAB Ondansetron HCl 4 mg Q4HP PRN IV 01/24/24 22:15 Docusate Sodium 100 mg BIDPRN PRN PO 01/24/24 22:15 Acetaminophen 650 mg Q6HP PRN PO 01/24/24 22:15 Morphine Sulfate 2 mg Q4HPRN PRN IV 01/24/24 22:15 01/30/24 09:54 2 MG Nitroglycerin 0.4 mg Q5MINP PRN SL 01/24/24 22:45 Morphine Sulfate 2 mg Q30M PRN IV 01/24/24 22:45 Ceftriaxone Sodium 50 ml @ 100 mls/hr DAILY@09 IV 01/26/24 09:00 01/30/24 09:00 100 MLS/HR Carvedilol 3.125 mg Q12HR PO 01/26/24 22:00 01/30/24 09:57 3.125 MG Furosemide 40 mg DAILY IV 01/27/24 10:00 01/30/24 09:55 40 MG Empaglifozin 10 mg DAILY PO 01/28/24 10:00 01/30/24 09:55 10 MG Lisinopril 10 mg DAILY PO 01/29/24 10:00 01/30/24 10:29 10 MG Spironolactone 12.5 mg DAILY PO 01/29/24 10:00 01/30/24 10:29 12.5 MG Heparin Sodium/ Dextrose 250 ml @ 21 mls/hr [id number] IV 01/30/24 10:15 01/30/24 11:20 21 MLS/HR Laboratory Results Laboratory Tests 01/29/24 05:32 Coagulation Test 01/30/24 07:23 Prothrombin Time 13.1 sec (9.3-11.8) H Prothrombin Time INR 1.26 (0.9-1.15) H Activated Partial Thromboplast Time 102.8 SEC (24.5-34.5) *H Assessment/Plan Assessment/Plan Acute bilateral pulmonary embolism, ruled out right heart strain continue heparin drip, cardiology consult appreciated, possible thrombectomy versus IVC filter versus medical management Acute on chronic decompensated HFrEF, NYHA class III Acute hypoxic respiratory failure PaO2 54 percent NSTEMI type II secondary to above Hypertension Right lower extremity DVT Morbid obesity, Class 2 Medical noncompliance Time spent 45 minutes Scheduled for pulmonary angiogram, possible RLE venous angiogram, and IVC filter implantation at first available today by 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
[2024-01-30] MEDS ORDERED: LORazepam 2MG/ML-1ML VIAL IV ONE (13:15)
[2024-01-30 13:18] LABS: Basophils # (auto) 0.1 10 ^3/uL (0-0.2); Eosinophils # (auto) 0.4 10 ^3/uL (0-0.8); Eosinophils % (auto) 4.5 % (0.0-7.0); Lymphocytes # (auto) 2.1 10 ^3/uL (0.4-5.4); Lymphocytes % (auto) 25.5 % (10.0-50.0); Mean Corpuscular Hemoglobin 34.4 pg (28.0-32.0); Mean Corpuscular Hgb Conc. 34.8 g/dL (32.0-36.0); Mean Corpuscular Volume 98.8 fL (80.0-100.0); Monocytes % (auto) 12.4 % (0.0-12.0); Neutrophils # (auto) 4.7 10 ^3/uL (1.6-8.6); Neutrophils % (auto) 56.6 % (37.0-80.0); Nucleated Red Blood Cells % 0.1 %; Platelet Count (auto) 226 10^3/uL (140-450); Red Blood Cells 4.65 10^6/uL (4.5-5.90); Red Cell Distribution Width 13.7 % (11.8-14.3); White Blood Cell 8.2 10^3/uL (4.4-10.8)
[2024-01-30 13:40] LABS: INR 1.31 (0.9-1.15); Partial Thromboplastin Time 46.3 SEC (24.5-34.5); Prothrombin Time 13.6 sec (9.3-11.8)
[2024-01-30 13:42] LABS: Alanine Aminotransferase 18 U/L (7-40); Albumin 3.8 g/dL (3.2-4.8); Alkaline Phosphatase 60 U/L (46-116); Anion Gap 2 (5-15); Aspartate Aminotransferase 24 U/L (13-40); BUN/Creatinine Ratio 13.8 (10.0-20.0); Bilirubin, Total 0.7 mg/dL (0.2-1.0); Blood Urea Nitrogen 13 mg/dL (9-23); Calcium 9.8 mg/dL (8.7-10.4); Carbon Dioxide 34 mmol/L (20-31); Chloride 99 mmol/L (98-107); Glucose 104 mg/dL (74-106); Potassium 4.1 mmol/L (3.5-5.1); Sodium 135 mmol/L (136-145); Total Protein 7.1 g/dL (5.7-8.2)
[2024-01-30] MEDS: HEPARIN IN NS 1000Units/500mL 1,500 ML ONE (14:08)
[2024-01-30] MEDS: IODIXANOL 320MG/ML 100ML BTL IV ONE (14:08)
[2024-01-30] MEDS: ANGIOMAX 250 MG VIAL IV ONE (14:19)
[2024-01-30] MEDS: HEPARIN SODIUM (PORCINE) 5000 UNITS/ML 1ML VIAL ONE (14:20)
[2024-01-30] MEDS: SODIUM CHL 0.9% 0 ML ONE (14:20)
[2024-01-30] MEDS: MIDAZOLAM HCL 2MG/2ML 2ml VIAL (1mg/ml) ONE (14:20)
[2024-01-30] MEDS: LIDOCAINE 2%HCL (LOCAL ANESTH.) INJ 20ML MDV ONE (14:20)
[2024-01-30] MEDS: fentaNYL CITRATE 100 MCG/2 ML VL ONE ×2 (14:20→16:49)
--- NOTE | 2024-01-30 18:31 | DVHOP2 ---
Operative Report - 2 Report Details Date: 01/30/24 Preop Diagnosis: The propagation of right leg DVT to the right common femoral vein, despite anticoagulation, in the presence of recurrent pulmonary embolism as well as intra-atrial shunting evident by invasive right heart catheterization with a visualization of the left atrium. Patient at high-risk of pulmonary embolism as well as systemic embolism, thus we will proceed with the IVC filter implantation, and then we will attempt the right leg thrombectomy using right popliteal vein access. Postop Diagnosis: 1. Successful implantation of an IVC filter it was Che brand with a28 mm size, it was implanted in the infrarenal part of the IVC after venogram confirming location. 2. Attempted right leg popliteal venous access, had failed due to failure to gain access to the vein secondary to chronic occlusion with a organized clot, makes it difficult to thread any wire through the right popliteal venous system. Multiple attempts were made under ultrasound guidance with no success, procedure was omitted, patient will continue aggressive anticoagulation. Surgeon: Aarti Donato MD Anesthesiologist: Conscious sedation using25 mcg of fentanyl as well as a mg IV midazolam. Anesthesia: Local Consent: The patient was informed of the risks and benefits of the procedure. These include but are not limited to complications of anesthesia, postoperative infection, incomplete relief of symptoms, recurrence of symptoms, damage to blood vessels, nerves and tendons, deep venous thrombosis, pulmonary embolism and possible need for repeat surgery in the future. Indications for Surgery: 58-year-old male with PMH for HLD, HTN, history of snake bite, PE and right lower extremity DVT, noncompliance with anticoagulation therapy, recurrent PE, presents to the hospital with shortness of breath and chest pain. Patient states that shortness of breath started approximately 1 week prior and has been progressively getting worse and patient started having increased right lower extremity pain and swelling as well as chest pain. Chest pain retrosternal, radiating up to left upper shoulder area/neck, dull pressure in nature, that worsens with deep breath. Upon evaluation in the ER patient noted to have elevated D-dimer and BNP, elevated troponins trending 186, 195, 169. CT pulmonary angio done and showed large bilateral filling defects with pulmonary artery suggestive of pulmonary emboli as well as straightening of septum and reflux of contrast into the inferior vena cava and hepatic veins suggestive of right heart strain.EKG reviewed and shows sinus rhythm at 98 beats per minute, nonspecific T-wave abnormality. No significant ST abnormalities noted. Repea adamaris ultrasound of the right leg revealed extension of the clot from the popliteal vein all the way to the common femoral vein. Mandating an attempt to place an IVC filter, and possible thrombectomy of the right leg DVT through the right popliteal venous access. Name of Procedure Performed 1. Ultrasound-guided left t femoral venous access. As right femoral vein is occluded with a clot. 2. Venogram to assess the location of the right and left renal veins 3. Successful implantation of an IVC filter, it was Hutchinson 28 mm at the infrarenal position. 4. Attempted left popliteal venous access under ultrasound guidance has failed due to chronic venous occlusion with the organized clot and inability to thread wire through the venous puncture needle. Procedure Details Procedure Details: Procedure note: After informed consent was obtained risks, benefits, complications, and alternatives were discussed in details with the patient who agrees to have the procedure done. At the beginning of the procedure the right groin and left groin area were prepped and draped in the regular sterile fashion. Patient received conscious sedation with25 mcg of fentanyl as well as a mg of midazolam., ultrasound mapping of the right femoral vein shows occlusive clot. Extending to the popliteal and deep tibial vein. Given the presence of a clot in the right side we decided to switch to left femoral venous access which was done under ultrasound guidance without difficulty, then five Khmer dilator with destination sheath of the Che system was advanced all the way to the inferior vena cava, and multiple venogram shots were taken to assess the location of the right and left renal veins. After confirmation of the position, a Che IVC filter was advanced through the sheath after the dilator was removed. Second venogram confirmed the location before unsheathing was done and IVC to was deployed successfully at the right position. Then patient was placed in the prone position with the exposure of the right popliteal fossa, venous mapping was done showing chronically occluded popliteal vein throughout its course with significant venous collateral. Multiple attempts were done to access the popliteal veins despite visualizing of the needles in the vicinity of the popliteal vein cavity we were not able to advance any wire due to chronic occlusion of the vein. Procedure omitted. Patient was placed on IV heparin and he was continuously on IV heparin during the procedure. I would recommend switching patient to oral anticoagulant tomorrow morning and continuous observation of patient's hemodynamics and oxygenation is needed before assessing suitability for discharge. Patient would need to be evaluated in the higher level care hospital as an outpatient given the presence of pulmonary hypertension with a reverse shunting through an atrial septal defect he would need an evaluation down the line for suitability of ASD closure if the venous pressure decreased after adequate anticoagulation. Patient was also advised to be compliant with the medication.. Impression and plan: 1. Successful implantation of an IVC filter in the infrarenal position, given propagation of the clot as well as the presence of atrial septal defect patient at risk of recurrent pulmonary embolism as well as systemic embolization. 2. Pulmonary hypertension secondary to recurrent pulmonary embolism in the context of noncompliance to medication. Patient also will need to be investigated for other causes of thromboembolism such as antiphospholipid antibody anticardiolipin antibody factor five Leiden mutation antithrombin mutation and prothrombin mutation. In addition to his malignancy. 3. Patient would need assessment high-level care as an outpatient for post thrombotic syndrome of the right leg, and approach via the internal jugular vein may be obtained crossing the venous system antegrade only in attempt to open the chronic venous occlusion of the right leg. 4. Patient also would need to be assess in higher level care as an outpatient after three months of anticoagulation to assess the feasibility of ASD closure after pulmonary hypertension is recover from anticoagulation. 5. Patient would need long-term anticoagulation given recurrent pulmonary embolism and recurrent DVTs. Condition Good Disposition AARTI DONATO MD Jan 30, 2024 18:31
[2024-01-30 20:57] LABS: Base Excess 3.4 mmol/L (-2.0-3.0)
[2024-01-30 21:15] LABS: INR 1.26 (0.9-1.15); Partial Thromboplastin Time 64.1 SEC (24.5-34.5); Prothrombin Time 13.1 sec (9.3-11.8)
[2024-01-31] VITALS (9 sets, daily range): BP systolic 99–133; BP diastolic 54–81; PULSE 20–73; RESP 16–95; TEMP 97.6–98.9; O2SAT 93–99
[2024-01-31 07:06] LABS: Basophils # (auto) 0.1 10 ^3/uL (0-0.2); Basophils % (auto) 0.7 % (0.0-2.0); Eosinophils # (auto) 0.4 10 ^3/uL (0-0.8); Eosinophils % (auto) 4.9 % (0.0-7.0); Hematocrit 46.5 % (41.0-53.0); Hemoglobin 15.9 g/dL (13.5-17.5); Lymphocytes # (auto) 1.9 10 ^3/uL (0.4-5.4); Mean Corpuscular Hemoglobin 33.8 pg (28.0-32.0); Mean Corpuscular Hgb Conc. 34.2 g/dL (32.0-36.0); Mean Corpuscular Volume 98.8 fL (80.0-100.0); Monocytes # (auto) 1.1 10 ^3/uL (0-1.3); Monocytes % (auto) 13.2 % (0.0-12.0); Neutrophils # (auto) 5.1 10 ^3/uL (1.6-8.6); Neutrophils % (auto) 59.2 % (37.0-80.0); Nucleated Red Blood Cells % 0.3 %; Platelet Count (auto) 207 10^3/uL (140-450); Red Cell Distribution Width 13.1 % (11.8-14.3); White Blood Cell 8.6 10^3/uL (4.4-10.8)
[2024-01-31 07:13] LABS: Alanine Aminotransferase 15 U/L (7-40); Albumin 3.8 g/dL (3.2-4.8); Alkaline Phosphatase 58 U/L (46-116); Anion Gap 4 (5-15); Aspartate Aminotransferase 21 U/L (13-40); BUN/Creatinine Ratio 16.5 (10.0-20.0); Bilirubin, Total 0.7 mg/dL (0.2-1.0); Blood Urea Nitrogen 15 mg/dL (9-23); Calcium 9.7 mg/dL (8.7-10.4); Carbon Dioxide 32 mmol/L (20-31); Chloride 100 mmol/L (98-107); Glucose 101 mg/dL (74-106); Potassium 4.6 mmol/L (3.5-5.1); Sodium 136 mmol/L (136-145)
[2024-01-31 07:22] LABS: INR 1.25 (0.9-1.15)
[2024-01-31 07:26] LABS: Partial Thromboplastin Time 74.2 SEC (24.5-34.5)
[2024-01-31] MEDS: APIXABAN 5 MG TAB PO SCH (09:47)
--- NOTE | 2024-01-31 12:20 | DVHPN2 ---
Reviewed: Care Plan, H&P, Labs, Medications, Previous Orders, Radiology Changes from previous H/P or p: No Changes General: Per HPI Eyes: No Pain, No Vision change, No Conjunctivae inflammation, No Eyelid inflammation, No Other, No Redness ENT: No Ear pain, No Ear discharge, No Nose pain, No Nose discharge, No Nose congestion, No Mouth pain, No Mouth swelling, No Throat pain, No Throat swelling, No Other Cardiovascular: No Chest Pain, No Palpitations, No Orthopnea, No Paroxysmal Noc. Dyspnea, No Edema, No Lt Headedness, No Other Respiratory: No Cough, No Dry; Shortness of breath, SOB with excertion; No Wheezing, No Hemoptysis, No Pleuritic Pain, No Sputum; Other (SOB at rest) Gastrointestinal: No Nausea, No Vomiting, No Abdominal Pain, No Diarrhea, No Constipation, No Melena, No Hematochezia, No Other Genitourinary: No Dysuria, No Frequency, No Incontinence, No Hematuria, No Retention, No Other Musculoskeletal: No other, No neck pain, No shoulder pain, No arm pain, No back pain, No hand pain, No leg pain, No foot pain Skin: No Rash, No Lesions, No Jaundice, No Bruising, No Other Objective Vitals Vital Signs Date Time Temp Pulse Resp B/P (MAP) Pulse Ox O2 Delivery O2 Flow Rate FiO2 01/31/24 09:29 62 16 122/68 01/31/24 08:53 98.0 99 98.0 01/31/24 08:20 Nasal Cannula* 4 36 Intake/Output Intake and Output 01/31/24 07:00 Intake Total 2581 ml Output Total 2100 ml Balance 481 ml Intake Oral 2100 ml IV Total 481 ml Output Urine Total 2100 ml # Voids 3 General Appearance: Alert, Oriented X3, Cooperative HEENT: Atraumatic Cardiovascular: Regular rate, Normal S1 Abdomen: Normal bowel sounds Medications Current Medications Medications Dose Ordered Sig/Pedro Route Start Time Stop Time Status Last Admin Dose Admin Hydralazine HCl 10 mg Q6HP PRN IV 01/24/24 22:15 Atorvastatin Calcium 20 mg HS PO 01/25/24 22:00 01/30/24 22:32 20 MG Acetaminophen/ Hydrocodone Bitart 1 tab Q4HP PRN PO 01/24/24 22:15 01/30/24 12:28 1 TAB Ondansetron HCl 4 mg Q4HP PRN IV 01/24/24 22:15 Docusate Sodium 100 mg BIDPRN PRN PO 01/24/24 22:15 Acetaminophen 650 mg Q6HP PRN PO 01/24/24 22:15 Morphine Sulfate 2 mg Q4HPRN PRN IV 01/24/24 22:15 01/31/24 09:29 2 MG Nitroglycerin 0.4 mg Q5MINP PRN SL 01/24/24 22:45 Morphine Sulfate 2 mg Q30M PRN IV 01/24/24 22:45 Ceftriaxone Sodium 50 ml @ 100 mls/hr DAILY@09 IV 01/26/24 09:00 01/31/24 09:41 100 MLS/HR Carvedilol 3.125 mg Q12HR PO 01/26/24 22:00 01/31/24 09:28 3.125 MG Furosemide 40 mg DAILY IV 01/27/24 10:00 01/31/24 09:28 40 MG Empaglifozin 10 mg DAILY PO 01/28/24 10:00 01/31/24 09:26 10 MG Lisinopril 10 mg DAILY PO 01/29/24 10:00 01/31/24 09:26 10 MG Spironolactone 12.5 mg DAILY PO 01/29/24 10:00 01/31/24 09:27 12.5 MG Apixaban 5 mg BID PO 01/31/24 10:00 01/31/24 09:47 5 MG Laboratory Results Laboratory Tests 01/31/24 06:07 Chemistry Test 01/30/24 12:50 01/31/24 06:07 Albumin 3.8 g/dL (3.2-4.8) 3.8 g/dL (3.2-4.8) Calcium Level 9.8 mg/dL (8.7-10.4) 9.7 mg/dL (8.7-10.4) Total Protein 7.1 g/dL (5.7-8.2) 7.0 g/dL (5.7-8.2) Coagulation Test 01/30/24 12:50 01/30/24 19:02 01/31/24 06:07 Prothrombin Time 13.6 sec (9.3-11.8) H 13.1 sec (9.3-11.8) H 13.0 sec (9.3-11.8) H Prothrombin Time Diluted Pending Dilute PT Confirmation Ratio Pending Prothrombin Time INR 1.31 (0.9-1.15) H 1.26 (0.9-1.15) H 1.25 (0.9-1.15) H Activated Partial Thromboplast Time 46.3 SEC (24.5-34.5) H 64.1 SEC (24.5-34.5) H 74.2 SEC (24.5-34.5) *H Thrombin Time Pending Fibrinogen 654 mg/dL (177-375) H Dilute Shreyas Viper Venom (Lupus) Pending Lupus Anticoagulant Interpretation Pending Protein S Antigen Pending Free Protein S Antigen Pending Anti-Thrombin III Antigen Pending Factor V Leiden Mutation Pending LFT Test 01/30/24 12:50 01/31/24 06:07 Alanine Aminotransferase (ALT) 18 U/L (7-40) 15 U/L (7-40) Alkaline Phosphatase 60 U/L (46-116) 58 U/L (46-116) Aspartate Amino Transferase (AST) 24 U/L (13-40) 21 U/L (13-40) Total Bilirubin 0.7 mg/dL (0.2-1.0) 0.7 mg/dL (0.2-1.0) Blood Gas Results Test 01/30/24 20:18 Arterial Blood pH 7.433 (7.350-7.450) FiO2 % 21.0 Labs and/or images reviewed: Labs reviewed by me, Image(s) reviewed by me Assessment/Plan Assessment/Plan Acute bilateral pulmonary embolism, ruled out right heart strain status post thrombectomy by Dr. Fragoso heparin discontinued started on Eliquis 5 mg p.o. b.i.d. Acute on chronic decompensated HFrEF, NYHA class III Acute hypoxic respiratory failure PaO2 54 percent NSTEMI type II secondary to above Hypertension Severe pulmonary hypertension Right lower extremity DVT, status post IVC filter placement by Dr.Al Myrick Morbid obesity, Class 2 History of rattlesnake bite in the past, treated at [facility] noncompliance Time spent 45 minutes Plan discussed with: Patient Date of Service: Jan 31, 2024 Billing Provider: LARS CHOU MD Common Visit Codes: [id number] INP/OBS CARE(HIGH) LARS CHOU MD Jan 31, 2024 12:20
--- NOTE | 2024-01-31 15:02 | DVHPN2 ---
Consult Progress Note Date Seen: Jan 31, 2024 Subjective Patient reports: Feels better Review of Systems: HEENT:Normal, CVS:Normal, RESPIRATORY:Normal, GI:Normal, :Normal, MSK:Normal, NEURO:Normal Other Systems: She was seen in the bedside, patient reports improvement in his symptoms and denies shortness or breath at this time. Patient patient reports mild pain in the tip of the toes. Per manager social responsibility, Oxygen will be delivered today. Objective vital signs Vital Sign Date Time Temp Pulse Resp B/P (MAP) Pulse Ox O2 Delivery O2 Flow Rate FiO2 01/31/24 13:00 98.1 64 20 121/54 (76) 98 98.1 01/31/24 08:20 Nasal Cannula* 4 36 Total Intake and Output 01/30/24 01/30/24 01/31/24 15:00 23:00 07:00 Intake Total 250 ml 1600 ml 731 ml Output Total 2100 ml Balance 250 ml -500 ml 731 ml medications Current Medications Medications Dose Ordered Sig/Pedro Route Start Time Stop Time Status Last Admin Dose Admin Hydralazine HCl 10 mg Q6HP PRN IV 01/24/24 22:15 Atorvastatin Calcium 20 mg HS PO 01/25/24 22:00 01/30/24 22:32 20 MG Acetaminophen/ Hydrocodone Bitart 1 tab Q4HP PRN PO 01/24/24 22:15 01/31/24 12:49 1 TAB Ondansetron HCl 4 mg Q4HP PRN IV 01/24/24 22:15 Docusate Sodium 100 mg BIDPRN PRN PO 01/24/24 22:15 Acetaminophen 650 mg Q6HP PRN PO 01/24/24 22:15 Morphine Sulfate 2 mg Q4HPRN PRN IV 01/24/24 22:15 01/31/24 09:29 2 MG Nitroglycerin 0.4 mg Q5MINP PRN SL 01/24/24 22:45 Morphine Sulfate 2 mg Q30M PRN IV 01/24/24 22:45 Ceftriaxone Sodium 50 ml @ 100 mls/hr DAILY@09 IV 01/26/24 09:00 01/31/24 09:41 100 MLS/HR Carvedilol 3.125 mg Q12HR PO 01/26/24 22:00 01/31/24 09:28 3.125 MG Furosemide 40 mg DAILY IV 01/27/24 10:00 01/31/24 09:28 40 MG Empaglifozin 10 mg DAILY PO 01/28/24 10:00 01/31/24 09:26 10 MG Lisinopril 10 mg DAILY PO 01/29/24 10:00 01/31/24 09:26 10 MG Spironolactone 12.5 mg DAILY PO 01/29/24 10:00 01/31/24 09:27 12.5 MG Apixaban 5 mg BID PO 01/31/24 10:00 01/31/24 09:47 5 MG Examination: GENERAL:Normal, HEENT:Normal, NECK:Normal, LUNGS:Normal, CVS:Normal, ABDOMEN:Normal, MSK:Normal, SKIN:Normal, NEURO:Normal, :Normal laboratory and microbiology Laboratory Tests 01/31/24 06:07 Test 01/31/24 06:07 Range/Units Serum Glucose 101 74-106 mg/dL Problem List/Assessment/Plan Problem List/Assessment/Plan Problem List/Assessment/Plan CTEPH with acute bilateral pulmonary embolism s/p pulmonary thrombectomy Extensive right lower extremity DVT Acute on chronic decompensated HFrEF, NYHA class III ?Ischemic cardiomyopathy with EF of 35% Acute hypoxic respiratory failure NSTEMI type II secondary to above ASD/PFO, newly diagnosed Hypertension Morbid obesity, Class 2 Medical noncompliance Plan/recommendations Echocardiogram reveals EF 35%, no evidence of right heart strain Increased RVSP in the 60s mmHg seen on Pulmonary thrombectomy GDMT for CHF, uptitrate as tolerated Apixaban 5 mg Obtain hypercoagulability panel Preload and afterload reduction Outpatient JOHANN given ASD/PFO Outpatient ischemic work-up Risk factor modifications, counseled adherence to medications Repeat RLE DVT US revealed progression of occlusive thrombus involving the entire femoral, popliteal, and posterior tibial vein. Scheduled for RLE venous angiogram at first available. And coupon allowing participate in this case Case discussed with Critical care, time spent 59 minutes. Plan discussed with: Patient Dietary Evaluation Review Comments: follow his current cardiac diet, avoid over-eating Expected Outcomes/Goals: gradual weight loss and less issue over his lower extremities.. Date of Service: Jan 31, 2024 Billing Provider: BENNY HOWARD MD Cardiology Common Codes: [id number] HOSP CARE(ROBERT Jarrett RESIDENT Jan 31, 2024 15:02
[2024-02-01] VITALS (8 sets, daily range): BP systolic 106–135; BP diastolic 57–80; PULSE 60–72; RESP 17–19; TEMP 97.6–98.3; O2SAT 95–97
--- NOTE | 2024-02-01 10:10 | DVHPN2 ---
Reviewed: Care Plan, H&P, Labs, Medications, Previous Orders, Radiology Changes from previous H/P or p: No Changes General: Per HPI Eyes: No Pain, No Vision change, No Conjunctivae inflammation, No Eyelid inflammation, No Other, No Redness ENT: No Ear pain, No Ear discharge, No Nose pain, No Nose discharge, No Nose congestion, No Mouth pain, No Mouth swelling, No Throat pain, No Throat swelling, No Other Cardiovascular: No Chest Pain, No Palpitations, No Orthopnea, No Paroxysmal Noc. Dyspnea, No Edema, No Lt Headedness, No Other Respiratory: No Cough, No Dry; Shortness of breath, SOB with excertion; No Wheezing, No Hemoptysis, No Pleuritic Pain, No Sputum; Other (SOB at rest) Gastrointestinal: No Nausea, No Vomiting, No Abdominal Pain, No Diarrhea, No Constipation, No Melena, No Hematochezia, No Other Genitourinary: No Dysuria, No Frequency, No Incontinence, No Hematuria, No Retention, No Other Musculoskeletal: No other, No neck pain, No shoulder pain, No arm pain, No back pain, No hand pain, No leg pain, No foot pain Skin: No Rash, No Lesions, No Jaundice, No Bruising, No Other Objective Vitals Vital Signs Date Time Temp Pulse Resp B/P (MAP) Pulse Ox O2 Delivery O2 Flow Rate FiO2 02/01/24 09:30 97.8 67 19 135/78 (97) 96 97.8 01/31/24 20:00 Nasal Cannula* 3 32 Intake/Output Intake and Output 02/01/24 07:00 Intake Total 2550 ml Output Total 4400 ml Balance -1850 ml Intake Oral 2500 ml IV Total 50 ml Output Urine Total 4400 ml # Voids 3 General Appearance: Alert, Oriented X3, Cooperative HEENT: Atraumatic Cardiovascular: Regular rate, Normal S1 Abdomen: Normal bowel sounds Medications Current Medications Medications Dose Ordered Sig/Pedro Route Start Time Stop Time Status Last Admin Dose Admin Hydralazine HCl 10 mg Q6HP PRN IV 01/24/24 22:15 Atorvastatin Calcium 20 mg HS PO 01/25/24 22:00 01/31/24 22:10 20 MG Acetaminophen/ Hydrocodone Bitart 1 tab Q4HP PRN PO 01/24/24 22:15 01/31/24 23:31 1 TAB Ondansetron HCl 4 mg Q4HP PRN IV 01/24/24 22:15 Docusate Sodium 100 mg BIDPRN PRN PO 01/24/24 22:15 Acetaminophen 650 mg Q6HP PRN PO 01/24/24 22:15 Morphine Sulfate 2 mg Q4HPRN PRN IV 01/24/24 22:15 02/01/24 04:22 2 MG Nitroglycerin 0.4 mg Q5MINP PRN SL 01/24/24 22:45 Morphine Sulfate 2 mg Q30M PRN IV 01/24/24 22:45 Ceftriaxone Sodium 50 ml @ 100 mls/hr DAILY@09 IV 01/26/24 09:00 01/31/24 09:41 100 MLS/HR Carvedilol 3.125 mg Q12HR PO 01/26/24 22:00 01/31/24 22:13 3.125 MG Furosemide 40 mg DAILY IV 01/27/24 10:00 01/31/24 09:28 40 MG Empaglifozin 10 mg DAILY PO 01/28/24 10:00 01/31/24 09:26 10 MG Lisinopril 10 mg DAILY PO 01/29/24 10:00 01/31/24 09:26 10 MG Spironolactone 12.5 mg DAILY PO 01/29/24 10:00 01/31/24 09:27 12.5 MG Apixaban 5 mg BID PO 01/31/24 10:00 01/31/24 22:10 5 MG Laboratory Results Laboratory Tests 01/31/24 06:07 Labs and/or images reviewed: Labs reviewed by me, Image(s) reviewed by me Assessment/Plan Assessment/Plan Acute bilateral pulmonary embolism, ruled out right heart strain status post thrombectomy by Dr. Fragoso heparin discontinued started on Eliquis 5 mg p.o. b.i.d. Acute on chronic decompensated HFrEF, NYHA class III Acute hypoxic respiratory failure PaO2 54 percent NSTEMI type II secondary to above Hypertension Severe pulmonary hypertension Right lower extremity DVT, status post IVC filter placement by Dr.Al Myrick Morbid obesity, Class 2 History of rattlesnake bite in the past, treated at [facility] noncompliance Time spent 45 minutes Plan discussed with: Patient Date of Service: Feb 01, 2024 Billing Provider: LARS CHOU MD Common Visit Codes: [id number] INP/OBS CARE(HIGH) LARS CHOU MD Feb 01, 2024 10:10
--- NOTE | 2024-02-01 10:20 | DVHPN2 ---
Consult Progress Note Date Seen: Feb 01, 2024 Subjective Review of Systems: CVS:Normal, RESPIRATORY:Normal, NEURO:Normal Objective vital signs Vital Sign Date Time Temp Pulse Resp B/P (MAP) Pulse Ox O2 Delivery O2 Flow Rate FiO2 02/01/24 09:30 97.8 67 19 135/78 (97) 96 97.8 01/31/24 20:00 Nasal Cannula* 3 32 Total Intake and Output 01/31/24 01/31/24 02/01/24 15:00 23:00 07:00 Intake Total 2050 ml 500 ml Output Total 1300 ml 2800 ml 300 ml Balance -1300 ml -750 ml 200 ml medications Current Medications Medications Dose Ordered Sig/Pedro Route Start Time Stop Time Status Last Admin Dose Admin Hydralazine HCl 10 mg Q6HP PRN IV 01/24/24 22:15 Atorvastatin Calcium 20 mg HS PO 01/25/24 22:00 01/31/24 22:10 20 MG Acetaminophen/ Hydrocodone Bitart 1 tab Q4HP PRN PO 01/24/24 22:15 01/31/24 23:31 1 TAB Ondansetron HCl 4 mg Q4HP PRN IV 01/24/24 22:15 Docusate Sodium 100 mg BIDPRN PRN PO 01/24/24 22:15 Acetaminophen 650 mg Q6HP PRN PO 01/24/24 22:15 Morphine Sulfate 2 mg Q4HPRN PRN IV 01/24/24 22:15 02/01/24 04:22 2 MG Nitroglycerin 0.4 mg Q5MINP PRN SL 01/24/24 22:45 Morphine Sulfate 2 mg Q30M PRN IV 01/24/24 22:45 Ceftriaxone Sodium 50 ml @ 100 mls/hr DAILY@09 IV 01/26/24 09:00 01/31/24 09:41 100 MLS/HR Carvedilol 3.125 mg Q12HR PO 01/26/24 22:00 01/31/24 22:13 3.125 MG Furosemide 40 mg DAILY IV 01/27/24 10:00 01/31/24 09:28 40 MG Empaglifozin 10 mg DAILY PO 01/28/24 10:00 01/31/24 09:26 10 MG Lisinopril 10 mg DAILY PO 01/29/24 10:00 01/31/24 09:26 10 MG Spironolactone 12.5 mg DAILY PO 01/29/24 10:00 01/31/24 09:27 12.5 MG Apixaban 5 mg BID PO 01/31/24 10:00 01/31/24 22:10 5 MG Examination: GENERAL:Abnormal (Lethargic), LUNGS:Abnormal (Diminished, O2 via NC), CVS:Normal, MSK:Abnormal (RLE edema non-pitting), NEURO:Normal laboratory and microbiology Laboratory Tests 01/31/24 06:07 Test 01/31/24 06:07 Range/Units Serum Glucose 101 74-106 mg/dL Problem List/Assessment/Plan Problem List/Assessment/Plan CTEPH with acute bilateral pulmonary embolism s/p pulmonary thrombectomy Extensive right lower extremity DVT with attempted thrombectomy Status post inferior vena cava filter insertion Acute on chronic decompensated HFrEF, NYHA class III ?Ischemic cardiomyopathy with EF of 35% Acute hypoxic respiratory failure NSTEMI type II secondary to above ASD/PFO, newly diagnosed Hypertension Morbid obesity, Class 2 Medical noncompliance Plan/recommendations (Dr. Howard) * Echocardiogram reveals EF 35%, no evidence of right heart strain * Increased RVSP in the 60s mmHg seen on Pulmonary thrombectomy * ABG revealed hypoxia, home O2 * GDMT for CHF, uptitrate as tolerated * Eliquis therapy 5 mg BID, uninterrupted * Obtain hypercoagulability panel * Preload and afterload reduction * Outpatient JOHANN given ASD/PFO * Outpatient ischemic work-up * Risk factor modifications, counseled * Adherence to medications We recommend close follow-up with cardiology and rn cardiovascular within 1-2 weeks post discharge. He was strongly counseled of medical compliance with Eliquis therapy and GDMT for CHF. There is no further cardiac work-up indicated at this time. Please call if in need to re-consult. Thank you for allowing us to care for this patient. This medical document was created using an electronic medical record system with voice recognition software and computerized dictation system. Although this document has been carefully reviewed, there might still be some phonetic and typographical errors. Occasional wrong-word or ``sound-alike substitutions may have occurred due to the inherent limitations of voice recognition software. These areas are purely typographical due to imperfections of the software programs and do not reflect any compromise in the patient's medical care. Please read the chart carefully and recognize, using context, where these substitutions have occurred. Plan discussed with: Patient, Other Dietary Evaluation Review Comments: follow his current cardiac diet, avoid over-eating Expected Outcomes/Goals: gradual weight loss and less issue over his lower extremities.. Date of Service: Feb 01, 2024 Billing Provider: BENNY HOWARD MD Cardiology Common Codes: [id number] [facility] Feb 01, 2024 10:20
[2024-02-01] MEDS: DOCUSATE SOD 100 MG CAP PO PRN (11:43)
[2024-02-02] VITALS (8 sets, daily range): BP systolic 95–119; BP diastolic 53–94; PULSE 59–65; RESP 17–20; TEMP 97.4–98.5; O2SAT 90–97
--- NOTE | 2024-02-02 13:05 | DVHPN2 ---
Reviewed: Care Plan, H&P, Labs, Medications, Previous Orders, Radiology Changes from previous H/P or p: No Changes General: Per HPI Eyes: No Pain, No Vision change, No Conjunctivae inflammation, No Eyelid inflammation, No Other, No Redness ENT: No Ear pain, No Ear discharge, No Nose pain, No Nose discharge, No Nose congestion, No Mouth pain, No Mouth swelling, No Throat pain, No Throat swelling, No Other Cardiovascular: No Chest Pain, No Palpitations, No Orthopnea, No Paroxysmal Noc. Dyspnea, No Edema, No Lt Headedness, No Other Respiratory: No Cough, No Dry; Shortness of breath, SOB with excertion; No Wheezing, No Hemoptysis, No Pleuritic Pain, No Sputum; Other (SOB at rest) Gastrointestinal: No Nausea, No Vomiting, No Abdominal Pain, No Diarrhea, No Constipation, No Melena, No Hematochezia, No Other Genitourinary: No Dysuria, No Frequency, No Incontinence, No Hematuria, No Retention, No Other Musculoskeletal: No other, No neck pain, No shoulder pain, No arm pain, No back pain, No hand pain, No leg pain, No foot pain Skin: No Rash, No Lesions, No Jaundice, No Bruising, No Other Objective Vitals Vital Signs Date Time Temp Pulse Resp B/P (MAP) Pulse Ox O2 Delivery O2 Flow Rate FiO2 02/02/24 11:17 Nasal Cannula* 3 32 02/02/24 11:14 66 98/64 02/02/24 09:00 98.0 17 97 98.0 Intake/Output Intake and Output 02/02/24 07:00 Intake Total 2065 ml Output Total 4000 ml Balance -1935 ml Intake Oral 2015 ml IV Total 50 ml Output Urine Total 4000 ml # Voids 3 General Appearance: Alert, Oriented X3, Cooperative HEENT: Atraumatic Cardiovascular: Regular rate, Normal S1 Abdomen: Normal bowel sounds Medications Current Medications Medications Dose Ordered Sig/Pedro Route Start Time Stop Time Status Last Admin Dose Admin Hydralazine HCl 10 mg Q6HP PRN IV 01/24/24 22:15 Atorvastatin Calcium 20 mg HS PO 01/25/24 22:00 02/01/24 21:07 20 MG Acetaminophen/ Hydrocodone Bitart 1 tab Q4HP PRN PO 01/24/24 22:15 02/02/24 10:18 1 TAB Ondansetron HCl 4 mg Q4HP PRN IV 01/24/24 22:15 Docusate Sodium 100 mg BIDPRN PRN PO 01/24/24 22:15 02/01/24 21:13 100 MG Acetaminophen 650 mg Q6HP PRN PO 01/24/24 22:15 Morphine Sulfate 2 mg Q4HPRN PRN IV 01/24/24 22:15 02/02/24 05:23 2 MG Nitroglycerin 0.4 mg Q5MINP PRN SL 01/24/24 22:45 Morphine Sulfate 2 mg Q30M PRN IV 01/24/24 22:45 Ceftriaxone Sodium 50 ml @ 100 mls/hr DAILY@09 IV 01/26/24 09:00 02/02/24 10:12 100 MLS/HR Carvedilol 3.125 mg Q12HR PO 01/26/24 22:00 02/02/24 10:14 3.125 MG Furosemide 40 mg DAILY IV 01/27/24 10:00 02/02/24 10:13 40 MG Empaglifozin 10 mg DAILY PO 01/28/24 10:00 02/02/24 10:14 10 MG Lisinopril 10 mg DAILY PO 01/29/24 10:00 02/02/24 10:13 10 MG Spironolactone 12.5 mg DAILY PO 01/29/24 10:00 02/02/24 10:14 12.5 MG Apixaban 5 mg BID PO 01/31/24 10:00 02/02/24 10:13 5 MG Laboratory Results Laboratory Tests 01/31/24 06:07 Labs and/or images reviewed: Labs reviewed by me, Image(s) reviewed by me Assessment/Plan Assessment/Plan Acute bilateral pulmonary embolism, ruled out right heart strain status post thrombectomy by Dr. Fragoso heparin discontinued started on Eliquis 5 mg p.o. b.i.d. Acute on chronic decompensated HFrEF, NYHA class III Acute hypoxic respiratory failure PaO2 54 percent NSTEMI type II secondary to above Hypertension Severe pulmonary hypertension Right lower extremity DVT, status post IVC filter placement by Dr.Al Myrick Morbid obesity, Class 2 History of rattlesnake bite in the past, treated at [facility] noncompliance Time spent 45 minutes Patient still Not ambulating Physical therapy ordered We will DC tomorrow Plan discussed with: Patient Date of Service: Feb 02, 2024 Billing Provider: LARS CHOU MD Common Visit Codes: [id number] INP/OBS CARE(HIGH) LARS CHOU MD Feb 02, 2024 13:05
[2024-02-03 01:00] VITALS: BP 99/62; PULSE 64; RESP 18; TEMP 98; O2SAT 97
[2024-02-03 05:00] VITALS: BP 103/62; PULSE 63; RESP 17; O2SAT 98
[2024-02-03 08:00] VITALS: PULSE 64
[2024-02-03 08:59] VITALS: BP 123/78; PULSE 63; RESP 18; TEMP 98.2; O2SAT 90
--- NOTE | 2024-02-03 12:43 | DVHPN2 ---
Reviewed: Care Plan, H&P, Labs, Medications, Previous Orders, Radiology Changes from previous H/P or p: No Changes General: Per HPI Eyes: No Pain, No Vision change, No Conjunctivae inflammation, No Eyelid inflammation, No Other, No Redness ENT: No Ear pain, No Ear discharge, No Nose pain, No Nose discharge, No Nose congestion, No Mouth pain, No Mouth swelling, No Throat pain, No Throat swelling, No Other Cardiovascular: No Chest Pain, No Palpitations, No Orthopnea, No Paroxysmal Noc. Dyspnea, No Edema, No Lt Headedness, No Other Respiratory: No Cough, No Dry; Shortness of breath, SOB with excertion; No Wheezing, No Hemoptysis, No Pleuritic Pain, No Sputum; Other (SOB at rest) Gastrointestinal: No Nausea, No Vomiting, No Abdominal Pain, No Diarrhea, No Constipation, No Melena, No Hematochezia, No Other Genitourinary: No Dysuria, No Frequency, No Incontinence, No Hematuria, No Retention, No Other Musculoskeletal: No other, No neck pain, No shoulder pain, No arm pain, No back pain, No hand pain, No leg pain, No foot pain Skin: No Rash, No Lesions, No Jaundice, No Bruising, No Other Objective Vitals Vital Signs Date Time Temp Pulse Resp B/P (MAP) Pulse Ox O2 Delivery O2 Flow Rate FiO2 02/03/24 08:59 98.2 63 18 123/78 (93) 90 98.2 02/02/24 20:00 Nasal Cannula* 3 32 Intake/Output Intake and Output 02/03/24 07:00 Intake Total 3645 ml Output Total 2575 ml Balance 1070 ml Intake Oral 3595 ml IV Total 50 ml Output Urine Total 2575 ml # Voids 1 # Bowel Movements 1 General Appearance: Alert, Oriented X3, Cooperative HEENT: Atraumatic Cardiovascular: Regular rate, Normal S1 Abdomen: Normal bowel sounds Medications Current Medications Medications Dose Ordered Sig/Pedro Route Start Time Stop Time Status Last Admin Dose Admin Hydralazine HCl 10 mg Q6HP PRN IV 01/24/24 22:15 Atorvastatin Calcium 20 mg HS PO 01/25/24 22:00 02/02/24 21:39 20 MG Ondansetron HCl 4 mg Q4HP PRN IV 01/24/24 22:15 Docusate Sodium 100 mg BIDPRN PRN PO 01/24/24 22:15 02/01/24 21:13 100 MG Acetaminophen 650 mg Q6HP PRN PO 01/24/24 22:15 Nitroglycerin 0.4 mg Q5MINP PRN SL 01/24/24 22:45 Ceftriaxone Sodium 50 ml @ 100 mls/hr DAILY@09 IV 01/26/24 09:00 02/03/24 08:32 100 MLS/HR Carvedilol 3.125 mg Q12HR PO 01/26/24 22:00 02/03/24 08:31 3.125 MG Furosemide 40 mg DAILY IV 01/27/24 10:00 02/03/24 08:31 40 MG Empaglifozin 10 mg DAILY PO 01/28/24 10:00 02/03/24 10:38 10 MG Lisinopril 10 mg DAILY PO 01/29/24 10:00 02/03/24 08:30 10 MG Spironolactone 12.5 mg DAILY PO 01/29/24 10:00 02/03/24 08:30 12.5 MG Apixaban 5 mg BID PO 01/31/24 10:00 02/03/24 08:31 5 MG Laboratory Results Laboratory Tests 01/31/24 06:07 Labs and/or images reviewed: Labs reviewed by me, Image(s) reviewed by me Assessment/Plan Assessment/Plan 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 with acute bilateral pulmonary embolism s/p pulmonary thrombectomy Extensive right lower extremity DVT with attempted thrombectomy Status post inferior vena cava filter insertion Acute on chronic decompensated HFrEF, NYHA class III ?Ischemic cardiomyopathy with EF of 35% Acute hypoxic respiratory failure NSTEMI type II secondary to above ASD/PFO, newly diagnosed Hypertension Morbid obesity, Class 2 Medical noncompliance Morbid obesity, Class 2 History of rattlesnake bite in the past, treated at [place] Medical noncompliance Per Cardiology patient needs outpatient JOHANN given ASD/PFO and outpatient ischemic workup Plan discussed with: Patient My Orders Orders - LARS CHOU MD Procedure Category Date Status Time Pt Request For Service PT 02/02/24 Logged 13:05 Date of Service: Feb 03, 2024 Billing Provider: LARS CHOU MD Common Visit Codes: [id number] INP/OBS CARE(HIGH) LARS CHOU MD Feb 03, 2024 12:43
[2024-02-03] MEDS ORDERED: SPIR25TA8 PO (12:58)
[2024-02-03] MEDS ORDERED: LISI20TA56 PO (12:58)
[2024-02-03] MEDS ORDERED: EMPA1TAB PO (12:58)
[2024-02-03] MEDS ORDERED: SIMV40TA42 PO (12:58)
[2024-02-03] MEDS ORDERED: CARV-214 OR (12:58)
[2024-02-03] MEDS ORDERED: APIX5TAB PO (12:58)
[2024-02-03 13:00] VITALS: BP 122/82; PULSE 77; RESP 19; TEMP 97.2; O2SAT 90
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
[2024-02-04 22:06] LABS: Antithrombin III Antigen 70 % (72-124); Dilute Prothrombin Time(dPT) 48.8 sec (0.0-47.6); Hexagonal Phase Phospholipid 0 sec (0-11); PTT-LA 54.2 sec (0.0-43.5); PTT-LA Mix 48.5 sec (0.0-40.5); Protein S Antigen Free 100 % (61-136); Proten S Antigen Total 117 % (60-150); Thrombin Time 20.3 sec (0.0-23.0); dRVVT 51.7 sec (0.0-47.0)
[2024-02-05 13:08] LABS: Lupus Interpretation Comment: (.)
== END 2024-02-03 15:50 | disposition home or self-care (01) | DRG 182 ==
LOC: EDUNIT# 18:24 → EDBD 18:24 → ER 18:24 → TELE 22:41 → TELE-WESTW 23:40
PROVIDERS: ADMIT Internal Medicine; ATTEND Family Medicine
PROC: 06CY3ZZ Extirpation of Matter from Lower Vein, Percutaneous Approach (ICD-10-PCS; principal; 2024-01-29)
PROC: 06CM3ZZ Extirpation of Matter from Right Femoral Vein, Percutaneous Approach (ICD-10-PCS; 2024-01-29)
PROC: 4A023N6 Measurement of Cardiac Sampling and Pressure, Right Heart, Percutaneous Approach (ICD-10-PCS; 2024-01-29)
PROC: B54BZZA Ultrasonography of Right Lower Extremity Veins, Guidance (ICD-10-PCS; 2024-01-29)
PROC: B31TYZZ Fluoroscopy of Left Pulmonary Artery using Other Contrast (ICD-10-PCS; 2024-01-29)
PROC: B31SYZZ Fluoroscopy of Right Pulmonary Artery using Other Contrast (ICD-10-PCS; 2024-01-29)
PROC: B51 Imaging, Veins, Fluoroscopy (ICD-10-PCS; 2024-01-30)
PROC: B54CZZA Ultrasonography of Left Lower Extremity Veins, Guidance (ICD-10-PCS; 2024-01-30)
PROC: 06H03DZ Insertion of Intraluminal Device into Inferior Vena Cava, Percutaneous Approach (ICD-10-PCS; 2024-01-30)
DX: I82.411 Acute embolism and thrombosis of right femoral vein (principal); I26.99 Other pulmonary embolism without acute cor pulmonale; J96.01 Acute respiratory failure with hypoxia; I21.A1 Myocardial infarction type 2; I50.23 Acute on chronic systolic (congestive) heart failure; I11.0 Hypertensive heart disease with heart failure; I82.431 Acute embolism and thrombosis of right popliteal vein; I70.291 Other atherosclerosis of native arteries of extremities, right leg; D72.829 Elevated white blood cell count, unspecified; E66.01 Morbid (severe) obesity due to excess calories; I47.20 Ventricular tachycardia, unspecified; I25.10 Atherosclerotic heart disease of native coronary artery without angina pectoris; I25.5 Ischemic cardiomyopathy; I27.20 Pulmonary hypertension, unspecified; E78.5 Hyperlipidemia, unspecified; Z91.199 Patient's noncompliance with other medical treatment and regimen due to unspecified reason; Z91.148 Patient's other noncompliance with medication regimen for other reason; Z86.718 Personal history of other venous thrombosis and embolism; Z99.81 Dependence on supplemental oxygen; Z86.711 Personal history of pulmonary embolism; Z79.01 Long term (current) use of anticoagulants; Z68.36 Body mass index [BMI] 36.0-36.9, adult; Q21.12 Patent foramen ovale; Z95.828 Presence of other vascular implants and grafts; Z79.899 Other long term (current) drug therapy; Z87.891 Personal history of nicotine dependence
CPT/HCPCS: 36415; 36600; 37187; 37191; 71045; 71275; 75743; 75822; 80048; 80053; 80061; 80307; 81241; 82805; 82962; 83036; 83735; 83880; 84443; 84484; 85025; 85301; 85305; 85306; 85379; 85384; 85610; 85613; 85670; 85705; 85730; 85732; 86141; 86850; 86900; 86901; 93005; 93306; 93971; 97110; 97116; 97163; 99152; 99291; C1894; G0378; J2250; Q9967

== ENCOUNTER 2024-03-21 22:09 | Emergency (ER) | payer MEDICAID ==
[~2024-03-21] VITALS: Ht 193 cm; Wt 136.0 kg
[~2024-03-21 22:09] MED LIST changes: +CARV-214 OR; +EMPA1TAB PO; +SIMV40TA42 PO; +SPIR25TA8 PO
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
[2024-03-22 00:01] VITALS: BP 117/55; PULSE 87; RESP 17; TEMP 98.3; O2SAT 96
--- NOTE | 2024-03-22 05:51 | ECG ---
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
== END 2024-03-22 00:23 | disposition home or self-care (01) ==
LOC: ER 22:09 → EDBD 22:09 → ER 03-22 00:23
DX: F10.10 Alcohol abuse, uncomplicated (principal); J44.9 Chronic obstructive pulmonary disease, unspecified; I10 Essential (primary) hypertension; E78.5 Hyperlipidemia, unspecified; Z86.711 Personal history of pulmonary embolism; Y90.9 Presence of alcohol in blood, level not specified
CPT/HCPCS: 93005